=== PATIENT | female | born 1935 | race Caucasian/White ===

== ENCOUNTER 2017-04-29 15:24 | Inpatient (IN) | payer MEDICARE ==
[2017-04-29] MEDS ORDERED: Labetalol HCl 100 MG/20 ML VIAL ONE (16:07)
[2017-04-29 16:28] LABS: #Basophils 0.1 thou/uL (0.0-0.2); #Lymphocytes 3.6 thou/uL (1.20-3.40); #Neutrophils 10.6 thou/uL (1.40-6.50); %Basophils 0.8 % (0.0-1.0); %Eosinophils 0.2 % (0.0-10.0); %Lymphocytes 23.4 % (21.0-51.0); %Monocytes 6.7 % (0.0-10.0); Hematocrit 35.2 % (36.0-47.0); Mean Platelet Volume 7.2 fL (7.4-10.4); Red Blood Cell (RBC) Count 3.78 mill/uL (4.20-5.40); White Blood Cell (WBC) Count 15.5 thou/uL (4.8-10.8)
--- NOTE | 2017-04-29 16:28 | RAD ---
PORTABLE CHEST ONE VIEW 04/29/17 at 4:18 p.m. HISTORY: Chest pain. FINDINGS: Comparison made with exam of 07/06/13. The heart size is enlarged. The lungs are expanded without focal areas of consolidation, pneumothora x, or pleural effusions. There is no evidence of nikko pulmonary edema. 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 There are degenerative changes in the spine and left shoulder joint. IMPRESSION: No radiographic evidence of acute cardiopulmonary process. POS: [facility]
[2017-04-29 16:41] LABS: Lactic Acid - Sepsis 1.2 mmol/L (0.5-2.2)
[2017-04-29 16:47] LABS: ALT (SGPT) 8 U/L (8-55); AST (SGOT) 16 U/L (5-34); Alkaline Phosphatase 95 U/L (40-150); Anion Gap 17 mmol/L (10-20); BUN (Urea Nitrogen) 52 mg/dL (9.8-20.1); Bilirubin, Total 0.3 mg/dL (0.2-1.2); CK (CPK) 108 U/L (29-168); Calc. Creatinine Clearance 0 mL/min (70-130); Calcium 9.7 mg/dL (7.8-10.44); Carbon Dioxide 26 mmol/L (23-31); Chloride 98 mmol/L (98-107); Estimated GFR-MDRD 8; Protein, Total 6.8 g/dL (6.0-8.3)
[2017-04-29 16:51] LABS: Troponin I 0.121 ng/mL (< 0.028)
[2017-04-29] MEDS ORDERED: niCARdipine 20MG In NaCl 20 MG/200 ML BAG ONE (18:30)
[2017-04-29 18:38] LABS: Bilirubin Negative (Negative); Blood, Urine Small (Negative); Glucose, Urine (Dipstick) 250 mg/dL (Negative); Ketone, Urine Negative (Negative); Nitrite Negative (Negative); Protein, Urine (Dipstick) > or equal to 300 mg/dL (Neg-Trace); Urobilinogen 0.2 mg/dL (0.2-1.0)
[2017-04-29 18:41] LABS: Bacteria/HPF 1+ HPF (None Seen); Hyaline Casts/LPF 0-3 HYALINE CAST LPF (0-3 Hyaline)
[2017-04-29] MEDS ORDERED: cefTRIAXone\\ROCEPHIN 2 GM VIAL ONE (19:00)
[2017-04-29] MEDS ORDERED: Acetaminophen 650 MG Suppository PR PRN (20:04)
[2017-04-29] MEDS ORDERED: Labetalol HCl 100 MG/20 ML VIAL SLOW IVP PRN (20:04)
[2017-04-29] MEDS ORDERED: Dextrose 5% in Water 1,000 ML IV PRN (20:08)
[2017-04-29] MEDS ORDERED: Dextrose 50% Abboject 50 ML SYRINGE SLOW IVP PRN (20:08)
--- NOTE | 2017-04-29 21:29 | HP ---
PRIMARY CARE PHYSICIAN: CY LEE M.D. CHIEF COMPLAINT: Weakness. HISTORY OF PRESENT ILLNESS: Ms. Bonilla is a pleasant 82-year-old lady, who was seen at [facility] on 04/29/2017. She has a history of end-stage renal disease. She has refused dialysis in the past. [facility] She reports feeling generalized weakness over the last few days. She also reports feeling nauseous. She also reports chest discomfort, but is unable to clarify further. Bianka cooper also reports fevers. Her son saw her today and he had her discharge from hospice and brought to [facility] emergency room. She was also reportedly hypertensive. She denies any cough or fever. She denies any dysuria or increased frequency of urination. REVIEW OF SYSTEMS: The following complete review of systems was negative, unless otherwise mentione d in the HPI or below: Constitutional: Weight loss or gain, sense of well-being, ability to conduc t usual activities, exercise tolerance. Skin/Breast: Rash, itching, changes in hair growth or loss , nail changes, breast lumps, tenderness, swelling, nipple discharge. Eyes: Vision, double vision, tearing, blind spots, pain. ENT/Mouth: Headaches (location, time of onset, duration, precipitatin g factors), vertigo, lightheadedness, injury. Vision, double vision, tearing, blind spots, pain, nos e bleeding, colds, obstruction, discharge, dental difficulties, gingival bleeding, dentures, neck st iffness, pain, tenderness, masses in thyroid or other areas. Cardiovascular: Precordial pain, subs ternal distress, palpitations, syncope, dyspnea on exertion, orthopnea, nocturnal paroxysmal dyspnea , edema, cyanosis, hypertension, heart murmurs, varicosities, phlebitis, claudication. Respiratory: Pain, shortness of breath, wheezing, stridor, cough, hemoptysis, fever or night sweats. Gastroint estinal: Poor appetite, dysphagia, indigestion, abdominal pain, heartburn, eructation, nausea, vomi ting, hematemesis, jaundice, constipation, or diarrhea, abnormal stools (justyna-colored, tarry, bloody , greasy, foul smelling), flatulence, hemorrhoids, recent changes in bowel habits. Genitourinary: Urgency, frequency, dysuria, nocturia, hematuria, polyuria, oliguria, unusual (or change in) color o f urine, stones, hesitancy, change in size of stream, dribbling, acute retention or incontinence, li [place], potency. Musculoskeletal: Pain, swelling, redness or heat of muscles or joints, limitation, of motion, muscular weakness, atrophy, cramps. Neurologic/Psychiatric: Convulsions, paralyses, tanisha mor, incoordination, parasthesias, difficulties with memory of speech, sensory or motor disturbances , or muscular coordination (ataxia, tremor), emotional problems, anxiety, depression, previous psych iatric care, unusual perceptions, hallucinations. Allergy/Immunologic: Skin rash, anemia, bleeding tendency, polydipsia, polyuria, intolerance to heat or cold. PAST MEDICAL HISTORY: Significant for myocardial infarction, End-stage renal disease, diabetes otoniel itus type 2, gastroesophageal reflux disease, dyslipidemia, and hypertension. PAST SURGICAL HISTORY: Significant for bilateral carpal tunnel surgery, appendectomy, hysterectomy, and tonsillectomy. PSYCHIATRIC HISTORY: Significant for anxiety. SOCIAL HISTORY: No history of tobacco use, alcohol use, or recreational drug use. CODE STATUS: I discussed her code status. She is DNR. She does not want any heroic measures, incl uding dialysis. FAMILY HISTORY: She was adopted, does not know her family history. ALLERGIES: CODEINE, PENICILLIN, and SULFA. CURRENT MEDICATIONS: Clonidine 0.2 mg daily, atorvastatin 40 mg daily, hydralazine 100 mg 3 times a day, aspirin 81 mg daily, Plavix 75 mg daily, Prilosec 10 mg daily, NovoLog insulin by sliding scal e, furosemide 40 mg 3 times a day, 5 mg daily, prednisone 5 mg daily, isosorbide dinitrate 40 mg 3 t imes a day, and Estroblend once daily. PHYSICAL EXAMINATION: GENERAL: Ms. Bonilla is awake and alert, not in acute distress. VITAL SIGNS: Blood pressure is 160/71, pulse is 87, she is breathing at rate of 16, and saturating 97% on 2 liters of oxygen. Her temperature is 99.2 degrees Fahrenheit. T-max in the emergency room was 99.5 degrees Fahrenheit. When she presented to the emergency room, she was also tachycardic wi th a heart rate of 120. She appears frail. EYES: No scleral icterus. No conjunctival pallor. ENT: Slightly dry mucosal membranes, no oropharyngeal erythema or exudates. NECK: Supple, nontender, normal range of movement. Trachea is midline. RESPIRATORY: Accessory muscles of breathing are not active. Chest wall movements are symmetrical b ilaterally. LUNGS: Clear to auscultation without wheeze, rhonchi, or crepitations. CARDIOVASCULAR: S1 and S2 are heard, regular. Peripheral pulses palpable. No carotid bruit, no pe ricardial rub. ABDOMEN: Soft, nontender, bowel sounds heard, no hepatomegaly, no splenomegaly. NEUROLOGIC: Cranial nerves II through XII are intact. Deep tendon reflexes are 2+. MUSCULOSKELETAL: Power is 5/5 in all 4 extremities. Normal range of movement at all major extremit y joints. LYMPHATIC: No cervical lymphadenopathy. SKIN: No rashes or subcutaneous nodules. PSYCHIATRIC: Normal mood, normal affect, patient is oriented to person and place, not to time. LABORATORY DATA: Ms. Bonilla's labs and investigations were reviewed. I reviewed her electrocardiog dagoberto, which shows sinus tachycardia, no ST changes to suggest an acute coronary syndrome. I also rev iewed her chest x-ray, which does not show any pulmonary infiltrates. Laboratory investigation show leukocytosis with 15,500 white cells, normocytic anemia with hemoglobin of 11.6, normal platelet co unt. Sodium 138, potassium decreased at 3.2, creatinine elevated at 4.94, blood urea nitrogen is el evated at 52, indeterminate troponin I of 0.121, and an unremarkable liver profile. Urinalysis is p ositive for protein, glucose, and leukocyte esterase. ASSESSMENT AND PLAN: Ms. Bonilla is a pleasant 82-year-old lady, who was seen at [facility]. Her problem list includes: 1. Sepsis: Ms. Bonilla's presentation meets the criteria for sepsis: The likely source of infectio n in the urine. She has received a dose of ceftriaxone, which I will continue. She does not recall the exact nature of her allergy to penicillin. 2. Urinary tract infection. We will continue ceftriaxone. 3. Hypertensive urgency: Her blood pressure has improved. We will resume her home medications and continue her on p.r.n. IV labetalol and p.r.n. IV hydralazine. 4. Hypokalemia: Replaced. 5. End-stage renal disease. I had a lengthy discussion with Ms. Bonilla. 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 Nephrology Cristal cooper is being consulted. 6. Indeterminate troponin I: Likely secondary to renal failure, rechecked. 7. We will consult palliative care for goals of care discussion. 8. Deep vein thrombosis prophylaxis with sequential compression devices and heparin. 9. Diabetes mellitus: Continue home medications, start insulin sliding scale and Accu-Cheks. 10. History of coronary artery disease. Continue aspirin and Plavix. LEVEL OF RISK: High. LEVEL OF COMPLEXITY: High. The patient is being admitted to the IM for close monitoring overnight. If she continues to impro ve, she will likely be transferred out of [facility] tomorrow. Many thanks for allowing me to participate in your patient's care. Please feel free to contact me w ith any questions or concerns.
[2017-04-29 21:38] VITALS: BMI 27.3
[2017-04-29] MEDS: Isosorbide Dinitrate 20 MG TAB PO SCH (21:58)
[2017-04-29] MEDS: Atorvastatin Calcium 40 MG TAB PO SCH (21:58)
[2017-04-29] MEDS: Heparin 5,000 UNITS/ML VIAL SC SCH (21:58)
[2017-04-29] MEDS: Furosemide 40 MG TAB PO SCH (21:58)
[2017-04-30 05:05] LABS: #Basophils 0.1 thou/uL (0.0-0.2); #Lymphocytes 3.7 thou/uL (1.20-3.40); #Monocytes 0.9 thou/uL (0.11-0.59); #Neutrophils 8.8 thou/uL (1.40-6.50); %Basophils 0.6 % (0.0-1.0); %Eosinophils 0.3 % (0.0-10.0); %Lymphocytes 27.3 % (21.0-51.0); %Monocytes 6.5 % (0.0-10.0); Hematocrit 33.7 % (36.0-47.0); Mean Platelet Volume 7.3 fL (7.4-10.4); Red Blood Cell (RBC) Count 3.58 mill/uL (4.20-5.40); White Blood Cell (WBC) Count 13.5 thou/uL (4.8-10.8)
[2017-04-30 05:27] LABS: Anion Gap 17 mmol/L (10-20); BUN (Urea Nitrogen) 53 mg/dL (9.8-20.1); Calc. Creatinine Clearance 10 mL/min (70-130); Calcium 9.3 mg/dL (7.8-10.44); Carbon Dioxide 25 mmol/L (23-31); Chloride 98 mmol/L (98-107); Estimated GFR-MDRD 8
[2017-04-30] MEDS: HumaLOG 300 UNITS/3 ML VIAL SC PRN (06:41)
--- NOTE | 2017-04-30 07:27 | CON ---
DATE OF CONSULTATION: 04/30/2017 CONSULTING PHYSICIAN: Dr. Wolfe REASON FOR CONSULTATION: Sepsis. HISTORY OF PRESENT ILLNESS: This is an 82-year-old female who came to the hospital last night with generalized malaise for the last 4 days. She had some fever. She was found to have a rather profou nd urinary tract infection. Previous to this admission, she has been on home hospice, which she say s was for chronic kidney disease. She has been steadfast in refusing dialysis in the past. This mo rning she says she still feels poorly. She is complaining of hiccups that have been occurring all n ight long. PAST MEDICAL HISTORY: 1. Myocardial infarction. 2. End-stage renal disease. 3. Diabetes mellitus type 2. 4. Gastroesophageal reflux. 5. Hyperlipidemia. PAST SURGICAL HISTORY: 1. Bilateral carpal tunnel release 2. Appendectomy. 3. Hysterectomy. 4. Tonsillectomy. SOCIAL HISTORY: She is a nonsmoker, does not consume alcohol, does not use any illicit drugs. FAMILY MEDICAL HISTORY: Unknown. ALLERGIES: CODEINE, PENICILLIN, SULFA. MEDICATIONS: Prior to admission, clonidine 0.2 mg daily, atorvastatin 40 mg daily, hydralazine 100 mg 3 times daily. Aspirin 81 mg daily, Plavix 75 mg daily, Prilosec 10 mg daily, prednisone 5 mg da keke, NovoLog insulin sliding scale, furosemide 40 mg 3 times daily, isosorbide dinitrate 40 mg 3 amanda es daily, Estroblend once daily. REVIEW OF SYSTEMS: Denies any nausea, vomiting, hematemesis, no hematochezia, hematuria or dysuria. PHYSICAL EXAMINATION: VITAL SIGNS: Temperature 98.8, pulse 100, blood pressure 173/67, O2 sat 99% on 2 liters. GENERAL: She is awake, alert, has no appearance of distress. HEENT: Pupils are reactive. Sclerae are anicteric. Oropharynx clear. NECK: Without adenopathy or JVD. LUNGS: Clear without wheezing or rhonchi. CARDIAC: S1, S2 regular. There is no audible murmur, rub or gallop. ABDOMEN: Soft, nontender, no hepatosplenomegaly. EXTREMITIES: No clubbing, cyanosis, or edema. X-RAY FINDINGS: Chest x-ray shows no evidence of mass, effusions or infiltrate. LABORATORY DATA: White blood cell count 13.5, hematocrit 33.7, platelet count 361. Sodium 137, pot assium 3.2, chloride 98, CO2 25, BUN 53, creatinine 5.3, glucose 225. ASSESSMENT: 1. Urinary tract infection. 2. High blood pressure with marginal control. PLAN: 1. From my standpoint, she can be transferred to the telemetry floor as she no longer meets criteri a for IMCU. 2. Continue antibiotics. 3. Continue antihypertensive medication and increased dosage as necessary.
--- NOTE | 2017-04-30 10:02 | CON ---
DATE OF CONSULTATION: 04/30/2017 HISTORY OF PRESENT ILLNESS: Ms. Bonilla is an 82-year-old white female who was admitted for sepsis. She is currently a [facility] patient. She has been having profound mental status change. I tri ed to converse with her, but she was essentially almost nonverbal. We are being consulted for her c hronic renal failure/acute kidney injury? REVIEW OF SYSTEMS: No chest pain. Positive for generalized malaise, no nausea, no vomiting,? of fe anant, positive dysuria. No chest pain, no overt shortness of breath. Decreased appetite, decreased energy level, no syncopal episode, no gross hematuria, no dysuria. MEDICATIONS: On 04/30/2017, Tylenol 650 mg q.4 h. p.r.n., Norvasc 5 mg once daily, Ecotrin 81 mg ta b once daily, Lipitor 40 mg at bedtime, ceftriaxone 1 gram IV q.24 h., clonidine 0.2 mg daily, Plavi x 75 mg once a day, furosemide 40 mg t.i.d., hydralazine 20 mg IV q.6 h. p.r.n., hydralazine 100 mg p.o. t.i.d., Humalog sliding scale, Isordil 40 mg t.i.d., prednisone 5 mg q.a.m. PAST MEDICAL HISTORY: 1. Coronary artery disease. 2. 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 3. History of a renal artery stenosis. 4. Coronary artery disease, status post NH. 5. Type 2 diabetes mellitus. 6. Hyperlipidemia. 7. Status post atrial flutter. PAST SURGICAL HISTORY: Includes the following, 1. Status post bilateral carpal tunnel release. 2. Status post renal arteriogram. 3. Status post cardiac cath with stent placement. 4. Status post appendectomy. 5. Status post hysterectomy. 6. Status post tonsillectomy. SOCIAL HISTORY: Currently, a [facility] patient. One child. Currently, no smoking, no alcohol i ntake, no IV drug abuse. Please note this patient was previously on hospice? Currently, she is a DNR. ALLERGIES: CODEINE, PENICILLIN, SULFA. TRAUMA: None. IMMUNIZATIONS: Unknown. HOSPITALIZATIONS: Please see past medical history. FAMILY HISTORY: Noncontributory - patient was adopted. PHYSICAL EXAMINATION: VITAL SIGNS: Blood pressure is 171/70, heart rate 92, respiratory rate 18, pulse ox 100%, temperatu re 98.9. GENERAL: Noted to be awake and nonverbal. Sedentary, lethargic. SKIN: Decreased turgor. HEENT: Pinkish conjunctivae, anicteric sclerae. NECK: No neck mass, no carotid bruits, no JVD. CHEST: No deformities. LUNGS: Decreased breath sounds. HEART: Normal sinus rhythm. No murmur, no gallops, no rubs. ABDOMEN: Globular, soft, nontender, no masses. EXTREMITIES: No edema, no deformities. LABORATORY DATA: On 04/30/2017, sodium 127, potassium 3.2, chloride 98, carbon dioxide 25, BUN 53, creatinine 5.23, GFR 18 mL per minute, glucose 225, calcium 9.3. White count 13.5, hemoglobin 10.9. Chest x-ray shows no acute cardiopulmonary process. ASSESSMENT AND PLAN: Acute kidney injury on top of her chronic renal failure - I feel that the Lasi x may be contributing with this. Chest x-ray did not show any overt congestive heart failure with t his patient. My bias is to hold off the diuretics temporarily if she is on any diuretics. I feel t hat this patient is a poor dialysis candidate. I will be discussing the issue with the patient's so n. I did speak with the nurse to have the son call me. For the moment, continue supportive care. Based on her history of renal artery stenosis, the underlying renal dysfunction may be secondary to hypertensive nephropathy and/or renovascular disease. Continue supportive care.
--- NOTE | 2017-04-30 10:07 | PDOC.PN ---
- Subjective Encounter Start Date: 04/30/17 Encounter Start Time: 07:20 Pt seen for followup re: UTI. Sleepy, not answering questions. Unable to complete ROS. - Objective Vital Signs & Weight: Vital Signs (12 hours) Temp Pulse Resp BP BP Pulse Ox 04/30/17 07:59 98.9 F 92 18 171/70 H 100 04/30/17 06:07 100 173/67 H 04/30/17 04:15 100 187/64 H 04/30/17 04:00 98.8 F 97 20 173/75 H 99 04/30/17 00:00 98.8 F 97 20 152/51 H 99 04/29/17 22:30 98.8 F 95 20 99 Weight Weight 159 lb I&O: 04/29/17 04/30/17 05/01/17 06:59 06:59 06:59 Intake Total 250 Balance 250 Result Diagrams: 04/30/17 04:23 04/30/17 04:23 Additional Labs: Accuchecks 04/30/17 04/30/17 04/29/17 09:21 05:58 21:42 POC Glucose 292 H 243 H 253 H Phys Exam - Physical Examination Constitutional: NAD HEENT: moist MMs, oral pharynx no lesions Neck: supple, full ROM Respiratory: no wheezing, no rales, no rhonchi, clear to auscultation bilateral Cardiovascular: RRR, no rub Gastrointestinal: soft, non-tender, no distention, positive bowel sounds Musculoskeletal: pulses present Neurological: moves all 4 limbs Lymphatic: no nodes Psychiatric: normal affect Deviation from normal: Unable to assess orientation to person, place or time Skin: no rash, normal turgor, cap refill <2 seconds Dx/Plan (1) UTI (urinary tract infection) Status: Acute (2) Altered mental status Code(s): R41.82 - ALTERED MENTAL STATUS, UNSPECIFIED Status: Acute (3) CKD (chronic kidney disease) Code(s): N18.9 - CHRONIC KIDNEY DISEASE, UNSPECIFIED Status: Chronic (4) Hypokalemia Code(s): E87.6 - HYPOKALEMIA Status: Acute (5) Hypertensive urgency Code(s): I16.0 - HYPERTENSIVE URGENCY Status: Resolved - Plan continue antibiotics, out of bed/ambulate * . Pt is keeping eyes tightly shut, nodding or shaking head appropriately in response to questions. Continue to monitor. Change antibiotic to IV meropenem to cover ESBL+ organisms, await cultures. Await palliative care/nephrology consults. Repeat troponin. Replace potassium. Review of Systems - Medications/Allergies Allergies/Adverse Reactions: Allergies Allergy/AdvReac Type Severity Reaction Status Date / Time codeine Allergy Verified 04/29/17 20:03 Penicillins Allergy Verified 04/29/17 20:03 Sulfa (Sulfonamide Allergy Verified 04/29/17 20:03 Antibiotics) Medications: Current Medications Acetaminophen (Tylenol) 650 mg PO Q4H PRN PRN Reason: Headache/Fever or Pain Acetaminophen (Tylenol) 650 mg HI Q4H PRN PRN Reason: Headache/Fever or Pain Amlodipine Besylate (Norvasc) 5 mg PO DAILY [facility] Last Admin: 04/30/17 06:07 Dose: 5 mg Aspirin (Ecotrin) 81 mg PO DAILY [facility] Atorvastatin Calcium (Lipitor) 40 mg PO HS [facility] Last Admin: 04/29/17 21:58 Dose: 40 mg Clonidine HCl (Catapres) 0.2 mg PO DAILY [facility] Last Admin: 04/30/17 06:07 Dose: 0.2 mg Clopidogrel Bisulfate (Plavix) 75 mg PO DAILY [facility] Dextrose/Water (Dextrose 50%) 25 gm SLOW IVP PRN PRN PRN Reason: Hypoglycemia Glucagon (Glucagon) 1 mg IM PRN PRN PRN Reason: Hypoglycemia Heparin Sodium (Porcine) (Heparin) 5,000 units SC TID [facility] Last Admin: 04/29/17 21:58 Dose: 5,000 units Hydralazine HCl (Apresoline) 20 mg SLOW IVP Q6H PRN PRN Reason: SBP Greater Than 180 Hydralazine HCl (Apresoline) 100 mg PO TID [facility] Last Admin: 04/29/17 21:57 Dose: 100 mg Dextrose/Water (D5w) 1,000 mls @ 0 mls/hr IV .Q0M PRN; As Directed PRN Reason: Hypoglycemia Ceftriaxone Sodium 1 gm/ (Sodium Chloride) 100 mls @ 200 mls/hr IVPB Q24HR [facility] Insulin Human Lispro (Humalog) 0 units SC .MILD SLIDING SCALE PRN PRN Reason: Mild Correctional Scale Last Admin: 04/30/17 06:41 Dose: 4 unit Isosorbide Dinitrate (Isordil) 40 mg PO TID [facility] Last Admin: 04/29/17 21:58 Dose: 40 mg Labetalol HCl (Normodyne) 10 mg SLOW IVP Q4H PRN PRN Reason: SBP Greater Than 180 Last Admin: 04/30/17 04:15 Dose: 10 mg Pantoprazole Sodium (Protonix) 40 mg PO DAILY [facility] Prednisone (Prednisone) 5 mg PO QA- SNOW
[2017-04-30] MEDS ORDERED: Potassium Chloride 40 MEQ in Premix Bag 1 BAG IVPB SCH (10:15)
[2017-04-30] MEDS: Meropenem 1 GM in Sodium Chloride 0.9% 100 ML IVPB SCH ×2 (12:26→20:16)
[2017-04-30 13:02] LABS: Troponin I 0.107 ng/mL (< 0.028)
[2017-04-30] MEDS: predniSONE 5 MG TAB PO SCH (13:36)
[2017-04-30] MEDS: Aspirin 81 mg Enteric Coated Tablet PO SCH (13:38)
[2017-04-30] MEDS: Isosorbide Dinitrate 20 MG TAB PO SCH ×3 (13:38→20:18)
[2017-04-30] MEDS: Heparin 5,000 UNITS/ML VIAL SC SCH ×3 (13:38→20:44)
[2017-04-30] MEDS: Clopidogrel Bisulfate 75 MG TAB PO SCH (13:38)
[2017-04-30] MEDS: Furosemide 40 MG TAB PO SCH (13:39)
[2017-04-30] MEDS ORDERED: cefTRIAXone\\ROCEPHIN 1 GM in Sodium Chloride 0.9% 100 ML IVPB SCH (18:00)
[2017-04-30] MEDS: Atorvastatin Calcium 40 MG TAB PO SCH (20:40)
[2017-05-01] MEDS: Meropenem 1 GM in Sodium Chloride 0.9% 100 ML IVPB SCH (04:13)
[2017-05-01] MEDS: Acetaminophen 325 MG TAB PO PRN ×5 (04:45→22:08)
[2017-05-01 05:14] LABS: #Basophils 0.1 thou/uL (0.0-0.2); #Eosinphils 0.1 thou/uL (0.0-0.7); #Lymphocytes 3.3 thou/uL (1.20-3.40); #Monocytes 0.9 thou/uL (0.11-0.59); #Neutrophils 8.3 thou/uL (1.40-6.50); %Basophils 0.7 % (0.0-1.0); %Lymphocytes 25.9 % (21.0-51.0); Hematocrit 30.2 % (36.0-47.0); Mean Platelet Volume 7.8 fL (7.4-10.4); Red Blood Cell (RBC) Count 3.22 mill/uL (4.20-5.40); White Blood Cell (WBC) Count 12.7 thou/uL (4.8-10.8)
[2017-05-01 05:31] LABS: Anion Gap 15 mmol/L (10-20); BUN (Urea Nitrogen) 61 mg/dL (9.8-20.1); Calc. Creatinine Clearance 9 mL/min (70-130); Calcium 8.8 mg/dL (7.8-10.44); Carbon Dioxide 25 mmol/L (23-31); Chloride 101 mmol/L (98-107); Estimated GFR-MDRD 7
[2017-05-01] MEDS: HumaLOG 300 UNITS/3 ML VIAL SC PRN ×4 (07:37→20:42)
[2017-05-01] MEDS: Aspirin 81 mg Enteric Coated Tablet PO SCH (08:05)
[2017-05-01] MEDS: Isosorbide Dinitrate 20 MG TAB PO SCH ×3 (08:05→20:41)
[2017-05-01] MEDS: predniSONE 5 MG TAB PO SCH (08:05)
[2017-05-01] MEDS: Clopidogrel Bisulfate 75 MG TAB PO SCH (08:06)
[2017-05-01] MEDS: Heparin 5,000 UNITS/ML VIAL SC SCH ×3 (08:06→20:41)
--- NOTE | 2017-05-01 08:16 | PRG ---
DATE OF SERVICE: 05/01/2017 The patient seems to be doing better today. PHYSICAL EXAMINATION: VITAL SIGNS: Temperature is 98.7, pulse 100, blood pressure 179/55, O2 sat 100% on 2 liters. HEENT: Unremarkable. NECK: No JVD. LUNGS: Fairly clear. CARDIOVASCULAR: S1, S2 regular. ABDOMEN: Soft. EXTREMITIES: No edema. Her urine culture is growing Enterococcus, which is sensitive to all of the antibiotics. LABORATORY DATA: White blood cell count 12, hematocrit 30, platelet count 322. Sodium 138, potassi um 3.4, chloride 101, CO2 25, BUN 61, creatinine 5.7, glucose 174. ASSESSMENT: 1. Urosepsis. 2. High blood pressure with poor control. 3. Chronic renal failure. PLAN: 1. Consolidate antibiotics. 2. From my standpoint, she can transfer to a medical floor.
[2017-05-01] MEDS ORDERED: Cipro 250 MG TAB PO SCH (12:30)
[2017-05-01] MEDS ORDERED: Potassium Chloride 20 MEQ TAB PO SCH (13:00)
[2017-05-01] MEDS: Cipro 250 MG TAB PO SCH (13:18)
--- NOTE | 2017-05-01 14:41 | PDOC.PN ---
- Subjective Encounter Start Date: 05/01/17 Encounter Start Time: 09:20 Pt seen for followup re: UTI. More alert today, answering questions. Denies chest pain or shortness of breath, fevers or chills. - Objective MAR Reviewed: Yes Vital Signs & Weight: Vital Signs (12 hours) Temp Pulse Resp BP BP Pulse Ox 05/01/17 11:08 98.7 F 96 18 128/52 L 100 05/01/17 08:06 101 H 163/53 H 05/01/17 08:05 100 05/01/17 08:00 98.5 F 101 H 18 163/53 H 98 05/01/17 07:00 100 20 179/55 H 100 05/01/17 06:19 92 200/67 H 05/01/17 04:18 100 05/01/17 04:00 98.7 F 92 18 177/61 H 100 Weight Weight 161 lb 3.2 oz I&O: 04/30/17 05/01/17 05/02/17 06:59 06:59 06:59 Intake Total 250 680 360 Balance 250 680 360 Result Diagrams: 05/01/17 04:38 05/01/17 04:38 Additional Labs: Accuchecks 05/01/17 05/01/17 04/30/17 10:34 05:54 21:08 POC Glucose 292 H 187 H 226 H 04/30/17 16:37 POC Glucose 245 H EKG Reviewed by me: Yes (Tele: NSR) Phys Exam - Physical Examination Constitutional: NAD HEENT: moist MMs, oral pharynx no lesions Neck: supple Respiratory: clear to auscultation bilateral Cardiovascular: RRR Gastrointestinal: soft Neurological: moves all 4 limbs Psychiatric: normal affect Dx/Plan (1) UTI (urinary tract infection) Status: Acute (2) Hypokalemia Code(s): E87.6 - HYPOKALEMIA Status: Acute (3) CKD (chronic kidney disease) Code(s): N18.9 - CHRONIC KIDNEY DISEASE, UNSPECIFIED Status: Chronic (4) Hypertensive urgency Code(s): I16.0 - HYPERTENSIVE URGENCY Status: Resolved (5) Altered mental status Code(s): R41.82 - ALTERED MENTAL STATUS, UNSPECIFIED Status: Resolved - Plan plan discussed w/ family, continue antibiotics, PT/OT, DVT proph w/heparin * . Enterococcus UTI, change antibiotics to oral ciprofloxacin. Discussed with pt's son Suhas (POA), updated him. PT/OT annelise, in case pt needs SNF prior to discharge home with hospice service. Review of Systems - Review of Systems Constitutional: negative: Fever, Chills, Sweats, Weakness, Malaise Cardiovascular: negative: Chest Pain, Palpitations, Orthopnea, Paroxysmal Noc. Dyspnea, Edema, Light Headedness Gastrointestinal: negative: Nausea, Vomiting, Abdominal Pain, Diarrhea, Constipation, Melena, Hematochezia - Medications/Allergies Allergies/Adverse Reactions: Allergies Allergy/AdvReac Type Severity Reaction Status Date / Time codeine Allergy Verified 04/29/17 20:03 Penicillins Allergy Verified 04/29/17 20:03 Sulfa (Sulfonamide Allergy Verified 04/29/17 20:03 Antibiotics) Medications: Current Medications Acetaminophen (Tylenol) 650 mg PO Q4H PRN PRN Reason: Headache/Fever or Pain Last Admin: 05/01/17 13:18 Dose: 650 mg Acetaminophen (Tylenol) 650 mg HI Q4H PRN PRN Reason: Headache/Fever or Pain Amlodipine Besylate (Norvasc) 5 mg PO DAILY [facility] Last Admin: 05/01/17 08:06 Dose: 5 mg Aspirin (Ecotrin) 81 mg PO DAILY [facility] Last Admin: 05/01/17 08:05 Dose: 81 mg Atorvastatin Calcium (Lipitor) 40 mg PO HS [facility] Last Admin: 04/30/17 20:40 Dose: 40 mg Ciprofloxacin (Cipro) 250 mg PO Q18H [facility] Last Admin: 05/01/17 13:18 Dose: 250 mg Clonidine HCl (Catapres) 0.2 mg PO DAILY [facility] Last Admin: 05/01/17 08:06 Dose: 0.2 mg Clopidogrel Bisulfate (Plavix) 75 mg PO DAILY [facility] Last Admin: 05/01/17 08:06 Dose: 75 mg Dextrose/Water (Dextrose 50%) 25 gm SLOW IVP PRN PRN PRN Reason: Hypoglycemia Glucagon (Glucagon) 1 mg IM PRN PRN PRN Reason: Hypoglycemia Heparin Sodium (Porcine) (Heparin) 5,000 units SC TID [facility] Last Admin: 05/01/17 08:06 Dose: 5,000 units Hydralazine HCl (Apresoline) 20 mg SLOW IVP Q6H PRN PRN Reason: SBP Greater Than 180 Last Admin: 05/01/17 06:19 Dose: 20 mg Hydralazine HCl (Apresoline) 100 mg PO TID [facility] Last Admin: 05/01/17 08:05 Dose: 100 mg Dextrose/Water (D5w) 1,000 mls @ 0 mls/hr IV .Q0M PRN; As Directed PRN Reason: Hypoglycemia Insulin Human Lispro (Humalog) 0 units SC .MILD SLIDING SCALE PRN PRN Reason: Mild Correctional Scale Last Admin: 05/01/17 11:33 Dose: 6 unit Isosorbide Dinitrate (Isordil) 40 mg PO TID [facility] Last Admin: 05/01/17 08:05 Dose: 40 mg Labetalol HCl (Normodyne) 10 mg SLOW IVP Q4H PRN PRN Reason: SBP Greater Than 180 Last Admin: 04/30/17 04:15 Dose: 10 mg Pantoprazole Sodium (Protonix) 40 mg PO DAILY [facility] Last Admin: 05/01/17 08:05 Dose: 40 mg Potassium Chloride (K-Dur) 20 meq PO 1300 [facility] Stop: 05/01/17 15:00 Last Admin: 05/01/17 13:18 Dose: 20 meq Prednisone (Prednisone) 5 mg PO [facility] Last Admin: 05/01/17 08:05 Dose: 5 mg
[2017-05-01] MEDS ORDERED: Ciprofloxacin 500 MG TAB PO SCH (20:00)
[2017-05-01] MEDS: Atorvastatin Calcium 40 MG TAB PO SCH (20:41)
--- NOTE | 2017-05-02 02:24 | PDOC.EVN ---
Event Note - Event Note Event Note: RN called - Pt c/o CP. Will get EKG, CE and add NTG patch x 1. Add Echo for AM Update - Troponins elevated - Will start Heparin drip, Consult Cardio, DC SQ Heparin
[2017-05-02] MEDS ORDERED: Nitroglycerin 2% Ointment 1 INCH/1 GM Packet ONE (02:25)
[2017-05-02] MEDS ORDERED: Nitroglycerin 0.4 MG TAB (25 Tab Bottle) ONE (02:25)
[2017-05-02] MEDS: Nitroglycerin 0.4 MG TAB (25 Tab Bottle) PO PRN ×3 (02:29→03:02)
[2017-05-02] MEDS ORDERED: Nitroglycerin 2% Ointment 1 INCH/1 GM Packet TOP SCH (02:30)
[2017-05-02 02:46] LABS: #Basophils 0.1 thou/uL (0.0-0.2); #Eosinphils 0.2 thou/uL (0.0-0.7); #Lymphocytes 3.2 thou/uL (1.20-3.40); #Neutrophils 8.5 thou/uL (1.40-6.50); %Basophils 0.7 % (0.0-1.0); %Eosinophils 1.4 % (0.0-10.0); %Lymphocytes 24.7 % (21.0-51.0); %Monocytes 7.9 % (0.0-10.0); Mean Platelet Volume 7.1 fL (7.4-10.4); Red Blood Cell (RBC) Count 3.19 mill/uL (4.20-5.40)
[2017-05-02] MEDS ORDERED: cloNIDine HCl 0.1 MG TAB PO PRN (03:11)
[2017-05-02 03:22] LABS: Troponin I 0.741 ng/mL (< 0.028)
[2017-05-02] MEDS ORDERED: Heparin 10,000 UNITS/ 10 ML VIAL SLOW IVP SCH (03:30)
[2017-05-02] MEDS ORDERED: Heparin 25,000 units/D5W 500 ML IVPB SCH (03:30)
[2017-05-02 03:36] LABS: Anion Gap 18 mmol/L (10-20); BUN (Urea Nitrogen) 70 mg/dL (9.8-20.1); Calc. Creatinine Clearance 8 mL/min (70-130); Carbon Dioxide 24 mmol/L (23-31); Chloride 99 mmol/L (98-107); Estimated GFR-MDRD 6
[2017-05-02] MEDS: Acetaminophen 325 MG TAB PO PRN ×3 (04:33→14:36)
[2017-05-02 07:24] LABS: Troponin I 0.592 ng/mL (< 0.028)
--- NOTE | 2017-05-02 08:14 | RAD ---
SINGLE VIEW OF CHEST: Date: 05/02/17 COMPARISON: 04/29/17. HISTORY: Chest pain. FINDINGS: Single view of the chest shows an enlarged cardiomediastinal silhouette. Increased interstitial lung markings are present. There is no evidence of consolidation, mass, or pleural effusion. IMPRESSION: Cardiomegaly without evidence of acute cardiopulmonary disease. POS: [facility]
[2017-05-02] MEDS: predniSONE 5 MG TAB PO SCH (09:11)
[2017-05-02] MEDS: Cipro 250 MG TAB PO SCH (09:11)
[2017-05-02] MEDS: Aspirin 81 mg Enteric Coated Tablet PO SCH (09:12)
[2017-05-02] MEDS: Clopidogrel Bisulfate 75 MG TAB PO SCH (09:13)
[2017-05-02] MEDS: Isosorbide Dinitrate 20 MG TAB PO SCH ×4 (09:14→21:35)
[2017-05-02] MEDS: HumaLOG 300 UNITS/3 ML VIAL SC PRN ×3 (11:53→21:45)
[2017-05-02] MEDS ORDERED: Morphine Sulfate 2 MG/ML SYRINGE SLOW IVP PRN (12:13)
--- NOTE | 2017-05-02 12:17 | PDOC.PN ---
- Subjective Encounter Start Date: 05/02/17 Encounter Start Time: 12:14 Ms. Bonilla is complaining of some chest discomfort still. she rates it at about a 5/10. She denies having any nausea. - Objective MAR Reviewed: Yes Vital Signs & Weight: Vital Signs (12 hours) Temp Pulse Resp BP BP Pulse Ox 05/02/17 11:57 98.9 F 95 16 138/56 L 98 05/02/17 09:13 105 H 198/75 H 05/02/17 09:12 198/75 H 05/02/17 09:11 105 H 198/75 H 05/02/17 08:00 98.9 F 105 H 18 198/75 H 98 05/02/17 03:10 98.9 F 105 H 20 178/64 H 98 05/02/17 00:29 98 Weight Weight 162 lb I&O: 05/01/17 05/02/17 05/03/17 06:59 06:59 06:59 Intake Total 680 1160 Balance 680 1160 Result Diagrams: 05/02/17 04:15 05/02/17 02:38 Additional Labs: Accuchecks 05/02/17 05/02/17 05/01/17 11:43 05:46 20:39 POC Glucose 309 H 170 H 262 H 05/01/17 17:35 POC Glucose 325 H Phys Exam - Physical Examination HEENT: PERRLA Respiratory: no wheezing, no rales, no rhonchi, clear to auscultation bilateral Cardiovascular: RRR, no significant murmur Gastrointestinal: soft, non-tender, positive bowel sounds Musculoskeletal: no edema Dx/Plan (1) NSTEMI (non-ST elevated myocardial infarction) Code(s): I21.4 - NON-ST ELEVATION (NSTEMI) MYOCARDIAL INFARCTION Status: Acute (2) End stage renal disease Code(s): N18.6 - END STAGE RENAL DISEASE Status: Acute (3) Diabetes mellitus type 2 in nonobese Code(s): E11.9 - TYPE 2 DIABETES MELLITUS WITHOUT COMPLICATIONS Status: Acute (4) Generalized weakness Code(s): R53.1 - WEAKNESS Status: Acute (5) UTI (urinary tract infection) Status: Acute - Plan * NSTEMI- continue nitrates, aspirin and plavix- will add Metoprolol * Echo results are pending * Await Cardiology evaluation. Patient normally sees Dr. Wyatt * UTI- culture is positive for enterococcus- sensitive to Quinolones- she has been changed to Cipro, renal dosed * DM- blood glucose is labile- will monitor trend, adjust medications as needed * Continue PT/OT.
[2017-05-02 12:54] LABS: Troponin I 0.622 ng/mL (< 0.028)
[2017-05-02] MEDS ORDERED: Metoprolol Tartrate 25 MG TAB PO SCH ×2 (13:00→21:00)
[2017-05-02] MEDS: Metoprolol Tartrate 25 MG TAB PO SCH ×3 (14:35→21:36)
--- NOTE | 2017-05-02 15:23 | PRG ---
DATE OF SERVICE: 05/02/2017 SERVICE: Pulmonary Medicine. INTERVAL HISTORY: The patient is doing great from a cardiovascular and respiratory standpoint. She denies any current fevers, chills, nausea, vomiting, or chest discomfort. She is extraordinarily s leepy today. Her family is suggesting that she is having episodes of sleepiness followed by periods in which she is a little bit more lucid. Yesterday, she is little bit confused about where she was and what the situation is. She has never had a history of delirium before, but that appears to be dealing with at this time. There were no overnight events. PHYSICAL EXAMINATION: VITAL SIGNS: Afebrile, pulse 95, blood pressure 138/56, respirations 16, saturation 98% on 2 liters nasal cannula. GENERAL: Patient is awake, alert, no apparent distress. LUNGS: Decreased air entry. There is crackles in the dependent regions. HEART: Normal rate, regular. ABDOMEN: Soft, nontender, nondistended. Bowel sounds positive. MUSCULOSKELETAL: No cyanosis or clubbing. There is 1+ pitting in the bilateral lower extremities. GENITOURINARY: No Thomas. NEUROLOGIC: Grossly nonfocal. LABORATORY DATA: Hemoglobin 9.8 otherwise. Troponin is currently trending to 0.622. Basic metabol ic profile is unremarkable except for creatinine of 6.4. ASSESSMENT: 1. Severe sepsis. 2. Acute hypoxic respiratory failure. 3. Urinary tract infection. 4. Non-ST elevation myocardial infarction. 5. End-stage renal disease. 6. Delirium. PLAN: We will continue to pull fluid off the patient with dialysis. We will try to minimize distra ctions in the evening and increase the light activity during the daytime. The patient's family appr eciates that the delirium is unlikely to clear inside of the hospital. Pulmonary will continue to f sugar, intermittently during this hospital stay. Please call if there are any questions or concerns .
--- NOTE | 2017-05-02 15:31 | CON ---
DATE OF CONSULTATION: 05/02/2017 REASON FOR CONSULTATION: Elevated troponin and chest pain. REFERRING PROVIDER: Dr. Kwasi Todd. HISTORY OF PRESENT ILLNESS: Ms. Bonilla is an unfortunate 82-year-old woman with a history of stage 5 renal failure and other comorbidities who recently was on hospice. Her family took her off hospic e due to increased weakness and recent sepsis. She developed chest pain last evening that she state d it lasted for 12 hours. No ameliorating, exacerbating or precipitating factors present. EKG was performed and showed nonspecific ST-T wave changes. Her peak troponin was estimated at 0.66. She i s currently pain free. PAST MEDICAL AND SURGICAL HISTORY: Stage 5 renal failure and she has refused dialysis, previous MS, diabetes mellitus, acid reflux, hyperlipidemia, hypertension, carpal tunnel release, appendectomy, hysterectomy and tonsillectomy. SOCIAL HISTORY: No current tobacco or alcohol use. She is currently DNR. ALLERGIES: CODEINE, PENICILLIN and SULFA. MEDICATIONS: Include clonidine, Plavix, hydralazine, Prilosec, prednisone, Lasix, Estroblend, isoso rbide and NovoLog. REVIEW OF SYSTEMS: Ten-point review of systems is reviewed and as above, otherwise negative. PHYSICAL EXAMINATION: GENERAL: Patient is a pleasant female who is in no acute distress. The patient appears her stated age. VITAL SIGNS: Blood pressure 130/56, pulse 95 and temperature 98.9. NEUROLOGIC: The patient is alert and oriented times 3 with no focal neurologic deficits. HEENT: Sclerae without icterus. Mouth has moist mucous membranes with normal pallor. NECK: No JVD. Carotid upstroke brisk. No bruits bilaterally. LUNGS: Clear to auscultation with unlabored respirations. BACK: No scoliosis or kyphosis. CARDIAC: Regular rate and rhythm with normal S1 and S2. No S3 or S4 noted. No significant rubs, m urmurs, thrills, or gallops noted throughout the precordium. PMI is not displaced. There is no par asternal heave. ABDOMEN: Soft, nontender, nondistended. No peritoneal signs present. No hepatosplenomegaly. No a bnormal striae. EXTREMITIES: 2+ femoral and 2+ dorsalis pedis pulses. No cyanosis, clubbing, or edema. SKIN: No gross abnormalities. LABORATORY DATA: Pertinent labs as above including creatinine of 6.43 with a BUN of 70. Hemoglobin 9.8. IMPRESSION: 1. Elevated troponin. 2. End-stage renal disease. RECOMMENDATIONS: I had a long discussion with the family on how to proceed. Her increased troponin may be due to elevated creatinine, demand ischemia, but unlikely an acute coronary event. Her EKG is within normal limits and she is currently pain free. Heparin was started overnight. Heparin has now been discontinued. At this point, I discussed coronary angiography with the family. That woul d not be my recommendation given that she has refused dialysis and continues to refuse dialysis. Bianka cooper does have significant oliguria and would likely become anuric. Family agrees to not proceed with a more aggressive approach. They like to proceed with medical therapy. At this point, we will add low dose beta-ignacia therapy. Continue aspirin and Plavix in addition to nitrates. They are likel y going to reinstitute hospice.
[2017-05-02] MEDS: Atorvastatin Calcium 40 MG TAB PO SCH (21:36)
[2017-05-03] MEDS: Cipro 250 MG TAB PO SCH ×2 (01:21→18:36)
[2017-05-03] MEDS: predniSONE 5 MG TAB PO SCH (10:28)
[2017-05-03] MEDS: Metoprolol Tartrate 25 MG TAB PO SCH ×2 (10:30→21:12)
[2017-05-03] MEDS: Isosorbide Dinitrate 20 MG TAB PO SCH ×3 (10:32→21:12)
[2017-05-03] MEDS: Clopidogrel Bisulfate 75 MG TAB PO SCH (10:34)
[2017-05-03] MEDS: Aspirin 81 mg Enteric Coated Tablet PO SCH (10:40)
--- NOTE | 2017-05-03 10:49 | PDOC.PN ---
- Subjective Encounter Start Date: 05/03/17 Encounter Start Time: 10:46 Ms. Bonilla does not have any complaints this morning. She denies chest pain or difficulty breathing. - Objective MAR Reviewed: Yes Vital Signs & Weight: Vital Signs (12 hours) Temp Pulse Resp BP BP Pulse Ox 05/03/17 10:34 140/60 05/03/17 10:31 68 140/60 05/03/17 10:30 68 140/60 05/03/17 08:00 98.8 F 68 16 140/60 98 05/03/17 04:13 168/56 H 05/03/17 03:44 98.6 F 88 16 185/71 H 99 05/03/17 00:22 96 05/02/17 23:23 98.9 F 82 18 141/59 H 96 Weight Weight 168 lb 14.4 oz I&O: 05/02/17 05/03/17 05/04/17 06:59 06:59 06:59 Intake Total 1160 460 240 Balance 1160 460 240 Result Diagrams: 05/02/17 04:15 05/02/17 02:38 Additional Labs: Accuchecks 05/03/17 05/02/17 05/02/17 05:53 21:34 16:34 POC Glucose 168 H 228 H 251 H 05/02/17 11:43 POC Glucose 309 H Phys Exam - Physical Examination HEENT: PERRLA Respiratory: no wheezing, no rales, no rhonchi, clear to auscultation bilateral Cardiovascular: RRR, no significant murmur Gastrointestinal: soft, non-tender, positive bowel sounds Musculoskeletal: no edema Dx/Plan (1) NSTEMI (non-ST elevated myocardial infarction) Code(s): I21.4 - NON-ST ELEVATION (NSTEMI) MYOCARDIAL INFARCTION Status: Acute (2) End stage renal disease Code(s): N18.6 - END STAGE RENAL DISEASE Status: Acute (3) Diabetes mellitus type 2 in nonobese Code(s): E11.9 - TYPE 2 DIABETES MELLITUS WITHOUT COMPLICATIONS Status: Acute (4) Generalized weakness Code(s): R53.1 - WEAKNESS Status: Acute (5) UTI (urinary tract infection) Status: Acute - Plan * UTI with sepsis- much improved * Continue Cipro for Enterococcus * NSTEMI- Echo results noted, there have not been any significant wall motion abnormalities, continue medical treatment * DM- blood glucose is stable * Metabolic encephalopathy- improving * Will begin discharge planning, group home vs. back home with Hospice.
--- NOTE | 2017-05-03 17:23 | PRG ---
DATE OF SERVICE: 05/03/2017 SERVICE: Pulmonary Medicine. INTERVAL HISTORY: The patient is doing really well from a mentation standpoint. She denies any manolo rtness of breath. She continues to have a little bit of heaviness over her chest. This has not rylee nged significantly since presentation based on what she suggests. She was able to get up to the sanford e of the bed yesterday. Tomorrow, thinking about trying to get her out of bed into a chair. Otherw ise, there has been no interval change to her condition. She is perfectly comfortable. PHYSICAL EXAMINATION: VITAL SIGNS: Afebrile, pulse 81, blood pressure 155/50, respirations 14, saturation 98% on half lit er nasal cannula. HEENT: Normocephalic, atraumatic. Sclerae are white, conjunctivae pink. Oral and nasal mucosa is moist without lesions. LUNGS: Decent air entry with no prolonged expiratory phase, wheezing, rhonchi or crackles. HEART: Normal rate, regular. ABDOMEN: Soft, nontender, nondistended. Bowel sounds positive. MUSCULOSKELETAL: No cyanosis or clubbing. No pitting in the bilateral lower extremities. NEUROLOGIC: Grossly nonfocal. LABORATORY DATA: Lipid profile is unremarkable. Troponin 0.6-2. Glucose is ranging from 168-272. Urine cultures growing Enterococcus. IMAGING: Echocardiogram demonstrates a normal ejection fraction with left ventricular hypertrophy. There is minimal valvular disease. ASSESSMENT: 1. Severe sepsis. 2. Urinary tract infection secondary to Enterococcus. 3. Acute hypoxic respiratory failure, resolved. 4. Non-ST elevation myocardial infarction. 5. End-stage renal disease. 6. Delirium. PLAN: At this point, the patient has no further requirements for Pulmonary or Critical Care opinion . I will sign off. Please call with additional questions or concerns moving forward. If the patie nt continues to abstain from dialysis, transitioning back to comfort care only would be appropriate.
[2017-05-03] MEDS: Acetaminophen 325 MG TAB PO PRN (18:50)
[2017-05-03] MEDS: Atorvastatin Calcium 40 MG TAB PO SCH (21:11)
[2017-05-03] MEDS: HumaLOG 300 UNITS/3 ML VIAL SC PRN (21:12)
[2017-05-04] MEDS: Acetaminophen 325 MG TAB PO PRN ×3 (04:16→22:25)
[2017-05-04] MEDS: HumaLOG 300 UNITS/3 ML VIAL SC PRN ×2 (06:48→17:54)
[2017-05-04 08:31] LABS: Hematocrit 30.2 % (36.0-47.0)
--- NOTE | 2017-05-04 08:53 | PDOC.PN ---
- Subjective Encounter Start Date: 05/04/17 Encounter Start Time: 08:51 Ms. Bonilla does not have any complaints, other than she had some trouble sleeping last night due to constipation. She also notes some chest pain at 5/ 10 level, and denies shortness of breath. - Objective MAR Reviewed: Yes Vital Signs & Weight: Vital Signs (12 hours) Temp Pulse Resp BP Pulse Ox 05/04/17 07:00 98.7 F 84 18 97 05/04/17 03:38 178/60 H 05/04/17 03:20 98.3 F 65 14 96 05/04/17 00:33 96 05/04/17 00:12 98.2 F 80 32 H 96 05/04/17 00:10 168/72 H 05/03/17 22:23 158/52 H 05/03/17 21:11 69 Weight Weight 166 lb 14.4 oz I&O: 05/03/17 05/04/17 05/05/17 06:59 06:59 06:59 Intake Total 460 540 Balance 460 540 Result Diagrams: 05/04/17 08:06 05/02/17 02:38 Additional Labs: Accuchecks 05/03/17 05/03/17 05/03/17 20:40 17:14 11:55 POC Glucose 434 H 366 H 272 H Phys Exam - Physical Examination HEENT: PERRLA Respiratory: no wheezing, no rales, no rhonchi, clear to auscultation bilateral Cardiovascular: RRR, no significant murmur Gastrointestinal: soft, non-tender, positive bowel sounds Musculoskeletal: no edema Dx/Plan (1) NSTEMI (non-ST elevated myocardial infarction) Code(s): I21.4 - NON-ST ELEVATION (NSTEMI) MYOCARDIAL INFARCTION Status: Acute (2) End stage renal disease Code(s): N18.6 - END STAGE RENAL DISEASE Status: Acute (3) Diabetes mellitus type 2 in nonobese Code(s): E11.9 - TYPE 2 DIABETES MELLITUS WITHOUT COMPLICATIONS Status: Acute (4) Generalized weakness Code(s): R53.1 - WEAKNESS Status: Acute (5) UTI (urinary tract infection) Status: Acute - Plan * NSTEMI- clinically stable, treating medically * HTN- blood pressure has been elevated- will change oral Clonidine to the patch , hopefully for smoother blood pressure control * DM- blood glucose is elevated - will add a scheduled insulin * PT to assess her physical discharge needs * UTI- continue cipro.
[2017-05-04] MEDS ORDERED: cloNIDine 0.2mg/24 Hour PATCH TD SCH (09:00)
[2017-05-04] MEDS: Insulin Detemir 100 UNITS/ML 15 UNITS in Pre-Filled Syringe 1 EACH SC SCH (09:56)
[2017-05-04] MEDS: predniSONE 5 MG TAB PO SCH (09:57)
[2017-05-04] MEDS: Aspirin 81 mg Enteric Coated Tablet PO SCH (09:57)
[2017-05-04] MEDS: Clopidogrel Bisulfate 75 MG TAB PO SCH (09:58)
[2017-05-04] MEDS: Isosorbide Dinitrate 20 MG TAB PO SCH ×3 (09:58→20:48)
[2017-05-04] MEDS: Metoprolol Tartrate 25 MG TAB PO SCH (09:59)
[2017-05-04] MEDS: Cipro 250 MG TAB PO SCH (12:56)
[2017-05-04] MEDS ORDERED: Calcium Carbonate 500 MG ChewTAB PO PRN (13:27)
[2017-05-04] MEDS: Nitroglycerin 0.4 MG TAB (25 Tab Bottle) PO PRN (13:32)
--- NOTE | 2017-05-04 13:54 | PRG ---
DATE OF SERVICE: 05/04/2017 SUBJECTIVE: Ms. Bonilla is having some substernal chest pain this afternoon. I asked the nurse to g rob her nitroglycerin. PHYSICAL EXAMINATION: VITAL SIGNS: Blood pressure was high 178/60, pulse 80. LUNGS: Clear. CARDIAC: Normal S1, S2. ABDOMEN: Soft, nontender. EXTREMITIES: No edema. ASSESSMENT: 1. End-stage renal disease, and the patient has declined dialysis, creatinine was 6.43 on the . 2. Coronary artery disease, status post procedures done by Dr. Wyatt, her clinical application consultant. 3. Do not resuscitate status. 4. Hypertension. PLAN: 1. Increase amlodipine. 2. Nitrates if needed. 3. Obviously medical therapy is the only option in this case. She has declined dialysis and has cr eatinine 6.43, estimated GFR of 6. A contrast exposure would almost certainly result in complete lo ss of renal function which would likely result in her shortly. This would not be appropriate.
[2017-05-04] MEDS: traMADol HCl 50 MG TAB PO PRN (14:47)
[2017-05-04] MEDS: Atorvastatin Calcium 40 MG TAB PO SCH (20:44)
[2017-05-04] MEDS: Metoprolol Tartrate 50 MG TAB PO SCH (20:48)
[2017-05-04] MEDS ORDERED: Insulin Detemir 100 UNITS/ML 15 UNITS in Pre-Filled Syringe 1 EACH SC SCH (21:00)
[2017-05-05] MEDS: HumaLOG 300 UNITS/3 ML VIAL SC PRN ×2 (06:22→11:35)
[2017-05-05 07:52] VITALS: TEMP 98.1
[2017-05-05] MEDS: Aspirin 81 mg Enteric Coated Tablet PO SCH (08:12)
[2017-05-05] MEDS: Cipro 250 MG TAB PO SCH (08:13)
[2017-05-05] MEDS: Metoprolol Tartrate 50 MG TAB PO SCH (08:13)
[2017-05-05] MEDS: Clopidogrel Bisulfate 75 MG TAB PO SCH (08:13)
[2017-05-05] MEDS: Isosorbide Dinitrate 20 MG TAB PO SCH (08:13)
[2017-05-05] MEDS: predniSONE 5 MG TAB PO SCH (08:13)
[2017-05-05] MEDS: Insulin Detemir 100 UNITS/ML 15 UNITS in Pre-Filled Syringe 1 EACH SC SCH (08:14)
[2017-05-05] MEDS: traMADol HCl 50 MG TAB PO PRN (09:20)
--- NOTE | 2017-05-05 10:37 | PDOC.PN ---
- Subjective Encounter Start Date: 05/05/17 Encounter Start Time: 10:34 Ms. Bonilla does not have any complaints, except for knee pain, and some pain in her hands which she attributes to Rheumatoid arthritis. - Objective MAR Reviewed: Yes Vital Signs & Weight: Vital Signs (12 hours) Temp Pulse Resp BP Pulse Ox 05/05/17 08:35 98.1 F 65 14 95 05/05/17 07:51 98.1 F 65 14 140/60 95 05/05/17 04:00 98.5 F 75 20 170/60 H 94 L 05/05/17 00:44 98.3 F 63 20 142/60 H 92 L Weight Weight 169 lb I&O: 05/04/17 05/05/17 05/06/17 06:59 06:59 06:59 Intake Total 540 1340 Balance 540 1340 Result Diagrams: 05/04/17 08:06 05/02/17 02:38 Additional Labs: Accuchecks 05/05/17 05/04/17 05/04/17 05:21 22:24 20:33 POC Glucose 205 H 321 H 223 H 05/04/17 05/04/17 05/04/17 17:07 11:07 06:42 POC Glucose 302 H 206 H 210 H Phys Exam - Physical Examination HEENT: PERRLA Respiratory: no wheezing, no rales, no rhonchi, clear to auscultation bilateral Cardiovascular: RRR, no significant murmur Gastrointestinal: soft, non-tender, positive bowel sounds Musculoskeletal: no edema Dx/Plan (1) NSTEMI (non-ST elevated myocardial infarction) Code(s): I21.4 - NON-ST ELEVATION (NSTEMI) MYOCARDIAL INFARCTION Status: Acute (2) End stage renal disease Code(s): N18.6 - END STAGE RENAL DISEASE Status: Acute (3) Diabetes mellitus type 2 in nonobese Code(s): E11.9 - TYPE 2 DIABETES MELLITUS WITHOUT COMPLICATIONS Status: Acute (4) Generalized weakness Code(s): R53.1 - WEAKNESS Status: Acute (5) UTI (urinary tract infection) Status: Acute - Plan * NSTEMI- clinically stable-continue medical treatment * UTI- due to enterococcus- continue Cipro * HTN- blood pressure is a bit better * DM- blood glucose is elevated- will monitor the trend, and titrate insulin as needed * Patient has decided to pursue shelter treatment prior to discharge.
[2017-05-05] MEDS: Acetaminophen 325 MG TAB PO PRN (11:48)
[2017-05-05 13:53] VITALS: BP 168/68
--- NOTE | 2017-05-05 14:18 | DIS ---
DATE OF ADMISSION: 04/29/2017 DATE OF DISCHARGE: 05/05/2017 PRIMARY CARE PHYSICIAN: Dr. Chapin Reeves. DISCHARGE DISPOSITION: Home. PRIMARY DISCHARGE DIAGNOSES: 1. Urinary tract infection secondary to Enterococcus. 2. Sepsis secondary to #1. 3. Non-ST elevation myocardial infarction, type 2. 4. End-stage renal disease, not on hemodialysis. 5. Hypertensive urgency. 6. Coronary artery disease. DISCHARGE MEDICATIONS: Include ciprofloxacin 250 mg 1 tablet every 18 hours for 4 more days, Lipito r 40 mg daily, aspirin 81 mg daily, Levemir insulin 15 units subQ at bedtime, Isordil 40 mg t.i.d., Protonix 40 mg daily, Norvasc was increased to 10 mg daily, clonidine was changed to clonidine patch 0.2 mg every 7 days topical, hydralazine 100 mg t.i.d. and prednisone 5 mg daily. PROCEDURES DONE DURING ADMISSION: The patient had an echo and the ejection fraction was estimated a t 60-65%. There was mild concentric left ventricular hypertrophy. CODE STATUS: DNR. ALLERGIES: CODEINE, PENICILLIN and SULFA. HOSPITAL COURSE: Ms. Bonilla is a pleasant 82-year-old female that presented to the emergency room w ith complaints of generalized weakness and her family said that she seemed somewhat different to the m as well and she was having fever. She was found to have a urinary tract infection with a metaboli c encephalopathy as well as sepsis. Urine culture grew Enterococcus, which was pansensitive. The p atient also has end-stage renal disease with a GFR less than 8. She was not acidotic or hyperkalemi c. However, the patient states that she does not want dialysis and has refused this on previous occ asion and continues to not want this and she understands the consequences. She also developed a non -ST segment elevated AL and thought to be a type 2 NSTEMI from the sepsis. This was treated medical ly. The patient's mental status improved dramatically during the course of her hospital stay where she had been previously extremely lethargic and unable to answer questions according to family. She is now alert and withered, and very appropriate. She made her own decision to be transferred to [facility] half-way facility for further physical therapy and then likely to be transitioned back home , possibly once again with home hospice.
== END 2017-05-05 14:04 | DRG 871 ==
LOC: ERS 15:24 → IMCU/EMU 21:23 → 2SE 05-01 10:37
PROVIDERS: ADMIT Internal Medicine; ATTEND Internal Medicine
DX: A41.9 Sepsis, unspecified organism (principal); N18.6 End stage renal disease; J96.01 Acute respiratory failure with hypoxia; I21.4 Non-ST elevation (NSTEMI) myocardial infarction; G93.41 Metabolic encephalopathy; I12.0 Hypertensive chronic kidney disease with stage 5 chronic kidney disease or end stage renal disease; N39.0 Urinary tract infection, site not specified; R65.20 Severe sepsis without septic shock; E11.22 Type 2 diabetes mellitus with diabetic chronic kidney disease; E87.6 Hypokalemia; I16.0 Hypertensive urgency; K21.9 Gastro-esophageal reflux disease without esophagitis; E78.5 Hyperlipidemia, unspecified; I25.2 Old myocardial infarction; Z66 Do not resuscitate; Z79.82 Long term (current) use of aspirin; Z79.4 Long term (current) use of insulin; Z88.6 Allergy status to analgesic agent; Z88.0 Allergy status to penicillin; Z88.2 Allergy status to sulfonamides; I25.10 Atherosclerotic heart disease of native coronary artery without angina pectoris; B95.2 Enterococcus as the cause of diseases classified elsewhere
CPT/HCPCS: 36415; 36416; 51701; 71010; 80048; 80053; 80061; 81003; 81015; 82550; 82553; 83605; 84484; 85014; 85018; 85025; 85049; 85730; 87040; 87077; 87086; 87186; 93005; 93010; 93306; 93798; 94760; 96361; 96365; 96367; 96375; 96376; A4216; G8978-GP-CM; G8979-GP-CL; G8987-GO-CL; G8988-GO-CJ; J0360; J0696; J1644; J1815; J2270; J3370

== ENCOUNTER 2017-05-20 06:56 | Emergency (ER) | payer MEDICARE ==
[2017-05-20 07:20] LABS: #Basophils 0.1 thou/uL (0.0-0.2); #Eosinphils 0.1 thou/uL (0.0-0.7); #Lymphocytes 2.8 thou/uL (1.20-3.40); #Neutrophils 15.3 thou/uL (1.40-6.50); %Basophils 0.4 % (0.0-1.0); %Eosinophils 0.4 % (0.0-10.0); %Lymphocytes 14.6 % (21.0-51.0); Hematocrit 27.1 % (36.0-47.0); Mean Platelet Volume 7.5 fL (7.4-10.4); Red Blood Cell (RBC) Count 2.95 mill/uL (4.20-5.40); White Blood Cell (WBC) Count 19.2 thou/uL (4.8-10.8)
[2017-05-20] MEDS ORDERED: Nitroglycerin 2% Ointment 1 INCH/1 GM Packet ONE (07:27)
[2017-05-20 07:42] LABS: ALT (SGPT) 52 U/L (8-55); AST (SGOT) 61 U/L (5-34); Alkaline Phosphatase 177 U/L (40-150); Anion Gap 19 mmol/L (10-20); BUN (Urea Nitrogen) 63 mg/dL (9.8-20.1); Bilirubin, Total 0.2 mg/dL (0.2-1.2); CK (CPK) 33 U/L (29-168); Calc. Creatinine Clearance 0 mL/min (70-130); Calcium 9.5 mg/dL (7.8-10.44); Carbon Dioxide 18 mmol/L (23-31); Chloride 104 mmol/L (98-107); Estimated GFR-MDRD 14; Globulin 3.1 g/dL (2.4-3.5); Protein, Total 6.5 g/dL (6.0-8.3)
[2017-05-20 07:48] LABS: Troponin I 0.069 ng/mL (< 0.028)
--- NOTE | 2017-05-20 07:51 | RAD ---
PORTABLE CHEST: HISTORY: Chest pain. COMPARISON: 05/02/2017. FINDINGS: Mild cardiomegaly. Mild vascular engorgement. No focal infiltrate or consolidation. I cannot excl ude small effusions. IMPRESSION: Mild cardiomegaly and mild vascular engorgement. POS: [facility]
[2017-05-20 10:52] LABS: Troponin I 0.064 ng/mL (< 0.028)
--- NOTE | 2017-05-30 16:38 | EKG ---
Test Reason : CP Blood Pressure : / mmHG Vent. Rate : 094 BPM Atrial Rate : 094 BPM P-R Int : 150 ms QRS Dur : 092 ms QT Int : 374 ms P-R-T Axes : 051 008 120 degrees QTc Int : 467 ms Normal sinus rhythm Possible Left atrial enlargement Abnormal ECG Similar 29-APR-2017 Confirmed by SIMRAN STAHL, FANTA ([id number]), material expeditor KATIE GARZON ([id number]) on 05/30/2017 4:38:23 PM Referred By: Confirmed By:FANTA KHALIL MD
== END 2017-05-20 13:11 | disposition home or self-care (01) ==
LOC: ERS 06:56
DX: R07.89 Other chest pain (principal); I25.2 Old myocardial infarction; I12.9 Hypertensive chronic kidney disease with stage 1 through stage 4 chronic kidney disease, or unspecified chronic kidney disease; N18.9 Chronic kidney disease, unspecified; E11.9 Type 2 diabetes mellitus without complications; K21.9 Gastro-esophageal reflux disease without esophagitis; E78.5 Hyperlipidemia, unspecified; F41.9 Anxiety disorder, unspecified; Z79.82 Long term (current) use of aspirin; Z79.4 Long term (current) use of insulin; Z79.899 Other long term (current) drug therapy
CPT/HCPCS: 36415; 36416; 71010; 80053; 82550; 82553; 83880; 84484; 85025; 93005

== ENCOUNTER 2017-05-24 01:31 | Inpatient (IN) | payer MEDICARE ==
[2017-05-24 01:30] LABS: Troponin I 0.099 ng/mL (< 0.028)
[~2017-05-24 01:31] MED LIST: Furosemide 40 MG/4 ML VIAL ONE; Nitroglycerin 2% Ointment 1 INCH/1 GM Packet ONE
[2017-05-24 02:00] LABS: #Basophils 0.1 thou/uL (0.0-0.2); #Eosinphils 0.1 thou/uL (0.0-0.7); #Lymphocytes 2.1 thou/uL (1.20-3.40); #Monocytes 0.6 thou/uL (0.11-0.59); #Neutrophils 7.7 thou/uL (1.40-6.50); %Basophils 1.1 % (0.0-1.0); %Eosinophils 0.8 % (0.0-10.0); %Lymphocytes 19.7 % (21.0-51.0); %Monocytes 5.3 % (0.0-10.0); ALT (SGPT) 61 U/L (8-55); AST (SGOT) 56 U/L (5-34); Alkaline Phosphatase 291 U/L (40-150); Anion Gap 17 mmol/L (10-20); BUN (Urea Nitrogen) 70 mg/dL (9.8-20.1); Bilirubin, Total 0.4 mg/dL (0.2-1.2); CK (CPK) 34 U/L (29-168); Calc. Creatinine Clearance 0 mL/min (70-130); Calcium 9.7 mg/dL (7.8-10.44); Carbon Dioxide 19 mmol/L (23-31); Chloride 97 mmol/L (98-107); Estimated GFR-MDRD 13; Globulin 3.4 g/dL (2.4-3.5); Hematocrit 24.1 % (36.0-47.0); Lipase 20 U/L (8-78); Mean Platelet Volume 7.3 fL (7.4-10.4); Protein, Total 6.7 g/dL (6.0-8.3); Red Blood Cell (RBC) Count 2.66 mill/uL (4.20-5.40); White Blood Cell (WBC) Count 10.5 thou/uL (4.8-10.8)
[2017-05-24] MEDS ORDERED: Ondansetron ODT 4 MG TAB SL PRN (02:49)
[2017-05-24] MEDS ORDERED: Ondansetron HCl/PF 4 MG/2 ML Vial IVP PRN (02:49)
[2017-05-24 05:18] LABS: Troponin I 0.092 ng/mL (< 0.028)
--- NOTE | 2017-05-24 05:34 | PDOC.EVN ---
Event Note - Event Note Event Note: [id number] h&p dictated 1. Chest pain 2. HTN 3. HPL 4. H/O CAD 5. DM type 2 plan: see orders
[2017-05-24] MEDS ORDERED: Acetaminophen 325 MG TAB PO PRN (05:56)
[2017-05-24] MEDS ORDERED: Dextrose 5% in Water 1,000 ML IV PRN (05:59)
[2017-05-24] MEDS ORDERED: Dextrose 50% Abboject 50 ML SYRINGE SLOW IVP PRN (05:59)
[2017-05-24] MEDS: Nitroglycerin 2% Ointment 1 INCH/1 GM Packet TOP SCH ×3 (06:00→17:50)
--- NOTE | 2017-05-24 06:17 | HP ---
DATE OF ADMISSION: 05/24/2017 CHIEF COMPLAINT: Chest pain. HISTORY OF PRESENT ILLNESS: Patient is an 82-year-old female with past medical history of CKD stage 4-5, hypertension, diabetes mellitus type 2, coronary artery disease, hyperlipidemia, who came here with complaint of chest pain. The patient started having chest pain all of sudden and woke up from sleep. Chest pain is substernal pressure kind of pain, denies any radiation associated with some d yspnea. Denies any sweating, denies any nausea, denies any vomiting, denies any dizziness. Pain is 5/10. Denies any fever, denies any chills, denies cough, denies sputum production, denies any head ache. PAST MEDICAL HISTORY: As per HPI. PAST SURGICAL HISTORY: Cardiac stents, hysterectomy. ALLERGIES: PENICILLIN, CODEINE, SULFA. SOCIAL HISTORY: Denies smoking, denies alcohol, denies any drugs. FAMILY HISTORY: Positive for heart problems. MEDICATIONS: Reviewed. REVIEW OF SYSTEMS: Constitutional: Denies any fever, denies any chills. Eyes: Denies any vision problems. Ears: Denies any hearing loss. Neck: Denies any neck pain. Cardiovascular: Positive for chest pain. Respiratory: Denies any cough, denies any sputum production. Gastrointestinal: Denies nausea, vomiting. Musculoskeletal: Denies any joint deformities. Integumentary: Denies an y rash. Psychiatric: Endorses anxiety. Cranial Nervous System: Denies syncope. All other review of systems are reviewed and are negative. PHYSICAL EXAMINATION: CONSTITUTIONAL/VITAL SIGNS: At the time of H\T\P performed, temperature 98.0, heart rate 90, respir ation 20, blood pressure is 161/70, pulse oximetry 92% on 2 liters. GENERAL: The patient appears tired. HEENT: Anterior nares patent. Nose normal. Ears normal. Teeth intact. Tongue is moist. NECK: Supple. No JVD. CARDIOVASCULAR SYSTEM: S1, S2 present, regular rate and rhythm. There are no murmurs, no rubs, no gallops. RESPIRATORY SYSTEM: No wheezing, no rhonchi. Breath sounds bilaterally. GASTROINTESTINAL: Abdomen is soft, nontender, no guarding, no organomegaly, no masses felt. MUSCULOSKELETAL: No edema. INTEGUMENTARY: No rashes seen. PSYCHIATRIC: Mood appropriate at this time. LABORATORY DATA: Labs at the time of H\T\P performed, sodium 128, potassium 4.6, chloride 97, CO2 1 9, BUN 70, creatinine 3.46, alkaline phosphatase of 291, troponin 0.092, albumin 3.3, globulin 3.4. White count 10.5, hemoglobin 7.9, platelet count is 377. ASSESSMENT AND PLAN: The patient is an 82-year-old female. 1. Chest pain. We need to rule out cardiac etiology. EKG did show some prominent T waves in V2, V 3. We will go ahead and consult cardiology to evaluate the patient. We will monitor the patient cl osely. 2. Hypertension. Monitor blood pressures. Continue home blood pressure medications. 3. Diabetes mellitus type 2. Monitor blood sugars. We will do insulin sliding scale. 4. History of coronary artery disease. Continue aspirin. 5. History of hyperlipidemia. Continue statin. 6. Anemia of chronic disease. Monitor hemoglobin closely. We will need the erythropoiesis-stimula ting agent now. We will consult Nephrology to evaluate the patient. 7. History of chronic kidney disease stage 4-5. Monitor creatinine closely. Plan to consult Nephr ology to evaluate the patient. The case was discussed in detail with the patient.
[2017-05-24 07:38] LABS: Troponin I 0.087 ng/mL (< 0.028)
[2017-05-24] MEDS: Aspirin 325 MG TAB PO SCH (08:17)
[2017-05-24] MEDS: hydrALAZINE 25 MG TAB PO SCH ×3 (08:18→22:31)
[2017-05-24] MEDS: HYDROcodone/Acetaminophen 5/325 mg Tablet PO PRN ×2 (08:21→16:03)
[2017-05-24] MEDS: Amlodipine 10 MG TAB PO SCH (08:21)
[2017-05-24] MEDS: Clopidogrel Bisulfate 75 MG TAB PO SCH (08:22)
[2017-05-24] MEDS: Heparin 5,000 UNITS/ML VIAL SC SCH ×3 (08:22→20:35)
[2017-05-24] MEDS ORDERED: cloNIDine 0.2mg/24 Hour PATCH TD SCH (09:00)
--- NOTE | 2017-05-24 09:58 | RAD ---
CHEST 1 VIEW: Date: 05/24/17 HISTORY: Chest pain. COMPARISON: 05/20/17. FINDINGS: Cardiac silhouette is magnified and enlarged. Pulmonary vasculature is more engorged than on the donaldo or study with increasing patchy bilateral air space opacity. Mediastinum remains midline. Calcified granulomata are consistent with healed granulomatous disease. There are degenerative changes of each shoulder. IMPRESSION: Worsening pulmonary vascular congestion with increasing patchy bilateral infiltrates. Close continue d radiographic follow-up is suggested. POS: [facility]
[2017-05-24] MEDS ORDERED: MORPHINE 10 MG/ML SYRINGE IV PRN (11:46)
--- NOTE | 2017-05-24 11:49 | PDOC.PN ---
- Subjective Encounter Start Date: 05/24/17 Encounter Start Time: 11:47 Ms. Bonilla is still having about 5/10 chest pain. she says it is still " stinging pretty bad". It is better than last night, at which time it was an 8/ 10. - Objective MAR Reviewed: Yes Vital Signs & Weight: Vital Signs (12 hours) Temp Pulse Resp BP BP Pulse Ox 05/24/17 08:30 97.9 F 98 17 195/78 H 92 L 05/24/17 08:21 90 195/78 H 05/24/17 08:18 98 195/78 H 05/24/17 08:00 97.9 F 98 17 92 L 05/24/17 04:00 98.0 F 90 20 92 L 05/24/17 03:00 98 F 78 18 168/70 H 92 L 05/24/17 02:45 98 F 78 18 92 L I&O: 05/23/17 05/24/17 05/25/17 07:59 06:59 06:59 Intake Total 100 Balance 100 Result Diagrams: 05/24/17 01:49 EQUAL OPPORTUNITY ASSISTANT 05/24/17 01:49 EQUAL OPPORTUNITY ASSISTANT Additional Labs: Accuchecks 05/24/17 05/24/17 11:14 06:48 POC Glucose 183 H 168 H Phys Exam - Physical Examination HEENT: PERRLA Respiratory: no wheezing, no rales, no rhonchi, clear to auscultation bilateral Cardiovascular: RRR, no significant murmur, no rub Gastrointestinal: soft, non-tender, positive bowel sounds Musculoskeletal: no edema Dx/Plan (1) Chest pain Code(s): R07.9 - CHEST PAIN, UNSPECIFIED Status: Acute (2) Coronary artery disease Code(s): I25.10 - ATHSCL HEART DISEASE OF [place] CORONARY ARTERY W/O ANG PCTRS Status: Acute (3) Diabetes mellitus type 2 in nonobese Code(s): E11.9 - TYPE 2 DIABETES MELLITUS WITHOUT COMPLICATIONS Status: Acute (4) End stage renal disease Code(s): N18.6 - END STAGE RENAL DISEASE Status: Acute (5) Hypertensive urgency Code(s): I16.0 - HYPERTENSIVE URGENCY Status: Resolved - Plan * Chest pain- likely stable angina- she normally see Dr. Wyatt as her Stopper Maker. She was evaluated by Cardiology on her last admission, and those recommendations were noted. She is to be treated medically. * HTN- her blood pressure is still elevated- will add Labetalol * ESRD- patient has refused dialysis in the past, and is being treated medically for this * Her Diuretic were held on her last admission due to worsening renal function. She is now a bit volme overloaded- will give a single dose of Lasix IV- her diuretics will have to be managed on a day by day bases given her advanced renal disease * Await Cardiology evaluation. * Monitor electrolytes * DM- blood glucose is stable * I have confirmed that she does not want Dialysis again, and would like to continue DNR status.
[2017-05-24] MEDS ORDERED: Furosemide 40 MG/4 ML VIAL SLOW IVP SCH ×2 (13:30→17:00)
[2017-05-24] MEDS ORDERED: Epoetin (ESRD) 20,000 UNITS/ML SC SCH (13:45)
[2017-05-24] MEDS ORDERED: Labetalol 100 MG TAB PO SCH ×2 (15:00→21:00)
[2017-05-24] MEDS: HumaLOG 300 UNITS/3 ML VIAL SC PRN (17:51)
[2017-05-24] MEDS: Labetalol 100 MG TAB PO SCH (22:29)
[2017-05-24] MEDS: Atorvastatin Calcium 40 MG TAB PO SCH (22:31)
[2017-05-25] MEDS: Nitroglycerin 2% Ointment 1 INCH/1 GM Packet TOP SCH ×5 (00:27→23:55)
[2017-05-25] MEDS: HYDROcodone/Acetaminophen 5/325 mg Tablet PO PRN (00:36)
--- NOTE | 2017-05-25 00:52 | CON ---
DATE OF CONSULTATION: 05/24/2017 HISTORY OF PRESENT ILLNESS: The patient is an 82-year-old woman who presents with increasing dyspnea and chest discomfort. The patient has a long history of coronary artery disease. The patient has previously undergone multiple stents placed in the coronary arteries. The patient was recently hospitalized with chest pain and dyspnea. She has chronic renal failure and is being treated with medical therapy. The patient recently was in the emergency room with elevated blood pressure and chest pain. She was subsequently released. The patient presented once again with recurrent chest discomfort. She felt dyspneic and had noticed increasing edema. The patient reports continued chest discomfort. PAST MEDICAL HISTORY: 1. Coronary artery disease. 2. Diabetes mellitus. 3. Hypertension. 4. Dyslipidemia. 5. Chronic renal insufficiency. 6. History of CVA. PAST SURGICAL HISTORY: Hysterectomy, carpal tunnel surgery, appendectomy, cataract surgery. SOCIAL HISTORY: Nonsmoker. ALLERGIES: CODEINE, PENICILLINS, SULFA DRUGS. MEDICATIONS ON ADMISSION: Prednisone 5 q.a.m., hydralazine 100 t.i.d., clonidine 0.2 TTS patch daily, Isordil 40 t.i.d., insulin 40 units daily, Plavix 75 daily, Lipitor 40 at bedtime, and Norvasc 10 daily. REVIEW OF SYSTEMS: Noticeable for increasing weakness and limited mobility. A ten-point system otherwise unremarkable. PHYSICAL EXAMINATION: GENERAL: Elderly woman in mild distress. VITAL SIGNS: Blood pressure 168/70. NECK: Full. LUNGS: Have a few crackles in both bases. HEART: Regular rate and rhythm. Normal S1, S2, with no murmurs. ABDOMEN: Nondistended. EXTREMITIES: Show mild bilateral edema. SKIN: Warm and dry. NEUROLOGIC: Nonfocal. VASCULAR: Radial pulses are 2+. LABORATORY DATA: White blood cell count 10.5, hemoglobin 7.9, hematocrit 24.4, and platelets 377. Sodium is 128, potassium 4.6, chloride 97, bicarbonate 19, BUN 70, creatinine 3.46. Troponin was 0.092. Her EKG reveals normal sinus rhythm with a nonspecific ST-T wave abnormality. IMPRESSION: 1. Chest pain. 2. History of percutaneous transluminal coronary angioplasty and stent placement. 3. Chronic renal insufficiency. 4. Diabetes mellitus. 5. Hypertension. This patient presents with increasing chest pain and dyspnea. Her weight is up approximately 10 pounds. We will start the patient back on IV Lasix. We will add Ranexa for chronic angina. We will follow this patient with you through hospitalization. ANDRE
[2017-05-25 05:27] LABS: #Eosinphils 0.1 thou/uL (0.0-0.7); #Lymphocytes 1.6 thou/uL (1.20-3.40); #Monocytes 0.5 thou/uL (0.11-0.59); #Neutrophils 6.1 thou/uL (1.40-6.50); %Basophils 0.6 % (0.0-1.0); %Eosinophils 1.3 % (0.0-10.0); %Monocytes 6.2 % (0.0-10.0); Hematocrit 22.4 % (36.0-47.0); Mean Platelet Volume 7.5 fL (7.4-10.4); Red Blood Cell (RBC) Count 2.46 mill/uL (4.20-5.40); White Blood Cell (WBC) Count 8.4 thou/uL (4.8-10.8)
[2017-05-25 05:33] LABS: Anion Gap 14 mmol/L (10-20); BUN (Urea Nitrogen) 65 mg/dL (9.8-20.1); Calc. Creatinine Clearance 17 mL/min (70-130); Calcium 9.2 mg/dL (7.8-10.44); Carbon Dioxide 21 mmol/L (23-31); Chloride 99 mmol/L (98-107); Estimated GFR-MDRD 13; Iron 16 ug/dL (50-170)
--- NOTE | 2017-05-25 08:00 | PDOC.PN ---
- Subjective Encounter Start Date: 05/25/17 Encounter Start Time: 08:50 Subjective: Patient with persistent chest pain, possibly a little better. BP still -: spiking high overnight. - Objective Resuscitation Status: Resuscitation Status DNR:Do Not Resuscitate MAR Reviewed: Yes Vital Signs & Weight: Vital Signs (12 hours) Temp Pulse Resp BP BP Pulse Ox 05/25/17 05:00 98 F 87 18 150/66 H 05/24/17 22:31 90 204/77 H 05/24/17 22:29 90 168/70 H 05/24/17 20:00 98.1 F 80 18 92 L Weight Weight 168 lb I&O: 05/24/17 05/25/17 05/26/17 06:59 06:59 06:59 Intake Total 1180 Balance 1180 Result Diagrams: 05/25/17 04:09 05/25/17 04:09 Additional Labs: Accuchecks 05/25/17 05/24/17 05/24/17 06:11 20:35 16:49 POC Glucose 150 H 228 H 194 H 05/24/17 11:14 POC Glucose 183 H Phys Exam - Physical Examination Constitutional: NAD HEENT: moist MMs Respiratory: no wheezing, no rhonchi mild bibasilar rales, good air movement Cardiovascular: RRR, no significant murmur Gastrointestinal: soft, non-tender, positive bowel sounds Musculoskeletal: no edema Neurological: non-focal, moves all 4 limbs Psychiatric: normal affect Dx/Plan (1) Chest pain Code(s): R07.9 - CHEST PAIN, UNSPECIFIED Status: Acute Plan: Medical management (2) Hypertension Code(s): I10 - ESSENTIAL (PRIMARY) HYPERTENSION Status: Chronic Plan: Switching Amlodipine to Procardia XL and titrating up as needed. (3) Coronary artery disease Code(s): I25.10 - ATHSCL HEART DISEASE OF [place] CORONARY ARTERY W/O ANG PCTRS Status: Chronic (4) Diabetes mellitus type 2 in nonobese Code(s): E11.9 - TYPE 2 DIABETES MELLITUS WITHOUT COMPLICATIONS Status: Chronic (5) End stage renal disease Code(s): N18.6 - END STAGE RENAL DISEASE Status: Chronic - Plan cont current plan of care Appreciate cardiology input. * . - Discharge Day Encounter end time: 09:10
[2017-05-25] MEDS: Aspirin 325 MG TAB PO SCH (08:12)
[2017-05-25] MEDS: hydrALAZINE 25 MG TAB PO SCH ×3 (08:12→21:38)
[2017-05-25] MEDS: Amlodipine 10 MG TAB PO SCH (08:12)
[2017-05-25] MEDS: Labetalol 100 MG TAB PO SCH ×2 (08:12→21:37)
[2017-05-25] MEDS: Furosemide 40 MG/4 ML VIAL SLOW IVP SCH (08:12)
[2017-05-25] MEDS: Clopidogrel Bisulfate 75 MG TAB PO SCH (08:12)
[2017-05-25] MEDS: Heparin 5,000 UNITS/ML VIAL SC SCH ×3 (08:13→21:38)
[2017-05-25] MEDS ORDERED: NIFEdipine XL 60 MG TAB PO SCH (09:00)
--- NOTE | 2017-05-25 09:13 | PRG ---
DATE OF SERVICE: 05/25/2017 Ms. Bonilla is not having chest pain today, but she was readmitted to the hospital with intractable c hest pain associated with severe hypertension, even last night her blood pressure was 204/77, today 1677/74, pulse 86 and regular. PHYSICAL EXAMINATION: LUNGS: She has bibasilar rales. CARDIAC: Normal S1, normal S2. ABDOMEN: Soft, nontender. EXTREMITIES: No edema. LABORATORY DATA: Hemoglobin is 7.1. ASSESSMENT: 1. Intractable angina. 2. Near end-stage renal disease with an estimated GFR of 13. 3. Hypertension. 4. Anemia. PLAN: 1. Change from amlodipine to nifedipine higher dose if needed, will start with 60 mg daily, go to 9 0 if needed. 2. Consideration for transfusion. 3. Continue diuresis. 4. We will stop Ranexa at this time. I think her problems looks like it is mostly hypertension and anemia as well.
[2017-05-25] MEDS: HumaLOG 300 UNITS/3 ML VIAL SC PRN (12:13)
--- NOTE | 2017-05-25 12:38 | PQF ---
CLINICAL DOCUMENTATION IMPROVEMENT CLARIFICATION FORM: ICD-10 Updated PLEASE DO AN ADDENDUM TO THE PROGRESS NOTE WITH ANY DOCUMENTATION UPDATES OR ADDITIONS AND CARRY THROUGH TO DC SUMMARY. THANK YOU. DATE: 05/25/17 ATTN: DR. PINEDA Please exercise your independent, professional judgment in responding to the clarification form. Clinical indicators are provided on the bottom of this form for your review Please check appropriate box(s): HEART FAILURE: A.TYPE: [ ] Systolic / HFrEF [ X ] Diastolic / HFpEF [ ] Combined Systolic / Diastolic B.ACUITY [ X ] Acute[ ] Acute on Chronic [ ] Chronic C.WITH (if appropriate) [ ] Hypertensive Heart Disease[ X ] Hypertensive Heart and Kidney Disease [ ] Other diagnosis [ ] Unable to determine In addition, please specify: Present on Admission (POA): [ X ] Yes [ ] No [ ] Unable to determine For continuity of documentation, please document condition throughout progress notes and discharge summary. Thank You. 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 All Rights Reserved RALPH [email or web address] Office: [phone] [facility]
--- NOTE | 2017-05-25 20:13 | PRG ---
DATE OF SERVICE: 05/25/2017 SUBJECTIVE: Patient was seen and examined at bedside and overnight events noted. Patient denies an y shortness of breath or chest pain or palpitation. No history of nausea or vomiting or diarrhea or fever or chills or cramps. OBJECTIVE: GENERAL: This is a well-built female in no acute distress. VITAL SIGNS: Temperature 97, pulse 67, respiratory rate , blood pressure 136/64.. HEENT: Atraumatic and normocephalic. Oral mucosa is moist. NECK: Supple. CARDIOVASCULAR: S1 and S2 heard. Rate and rhythm regular. RESPIRATORY: Clear to auscultation. GASTROINTESTINAL: Abdomen is soft. MUSCULOSKELETAL: No tenderness. No edema. DERMATOLOGIC: No skin rash. NEUROLOGIC: Alert, awake and oriented x3. No focal neurologic deficits. Moving all the extremitie s. PSYCHIATRIC: Mood and affect normal. LABORATORY DATA: Potassium is 5.1, BUN is 65 and creatinine is 3.4. ASSESSMENT AND PLAN: 1. Acute kidney injury on chronic kidney disease stage 4. Renal function is stable. 2. Cardiorenal syndrome. Continue on Lasix. Follow up with the business intern. 3. Hyponatremia. Limit fluid intake. 4. Hypertension, stable. 5. Anemia, rule out bleed. 6. Continue on Lasix and follow with Cardiology.
[2017-05-25] MEDS: Atorvastatin Calcium 40 MG TAB PO SCH (21:37)
--- NOTE | 2017-05-26 05:53 | CON ---
NEPHROLOGY CONSULTATION NOTE DATE OF CONSULTATION: 05/24/2017 CONSULTING PHYSICIAN: Dr. Gomez. REASON FOR CONSULTATION: Acute kidney injury. REASON FOR ADMISSION: Chest pain. HISTORY OF PRESENT ILLNESS: This is an 82-year-old female with history of chronic kidney disease, o n followup with Dr. Vega, hypertension, type 2 diabetes and coronary artery disease who came to the hospital with chest pain and was found to have elevated creatinine. 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 She even had a GFR of 7 and was on hospice at one point and was dischar ged from hospice during the last hospitalization. The patient is still having some shortness of [place] ath and chest pain. No fever or chills. No nausea, vomiting. No abdominal pain. PAST MEDICAL HISTORY: Positive for chronic kidney disease stage 5, hypertension, type 2 diabetes an d coronary artery disease. PAST SURGICAL HISTORY: Cardiac stent and hysterectomy. HOME MEDICATIONS: Include prednisone, hydralazine, clonidine, Protonix, Isordil, Levemir, clopidogr el, Lipitor and amlodipine. ALLERGIES: AMOXICILLIN, CODEINE, PENICILLIN and SULFA. SOCIAL HISTORY: No smoking or alcohol use. FAMILY HISTORY: No history of any kidney disease. REVIEW OF SYSTEMS: The following complete review of systems was negative, unless otherwise mentione d in the HPI or below: Constitutional: Weight loss or gain, ability to conduct usual activities. Skin: Rash, itching. Eyes: Double vision, pain. ENT/Mouth: Nose bleeding, neck stiffness, pain, tenderness. Cardiovascular: Palpitations, dyspnea on exertion, orthopnea. Respiratory: Shortness of breath, wheezing, cough, hemoptysis, fever or night sweats. Gastrointestinal: Poor appetite, abdominal pain, heartburn, nausea, vomiting, constipation, or diar byron. Genitourinary: Urgency, frequency, dysuria, nocturia. Musculoskeletal: Pain, swelling. Neurologic/Psychiatric: Anxiety, depression. Allergy/Immunologic: Skin rash, bleeding tendency. PHYSICAL EXAMINATION: GENERAL: This is a well-built female in no apparent distress. VITAL SIGNS: Temperature 98.9, pulse 70, respiratory rate 18 and blood pressure 177/70. HEENT: Atraumatic and normocephalic. Oral mucosa is moist. NECK: Supple. CARDIOVASCULAR: S1 and S2 heard. Rate and rhythm regular. RESPIRATORY: Clear. MUSCULOSKELETAL: 1+ edema. DERMATOLOGIC: No skin rash. NEUROLOGIC: Alert and awake. PSYCHIATRIC: Mood and affect normal. LABORATORY DATA: Potassium is 4.6, BUN is 70 and creatinine is 3.4. ASSESSMENT AND PLAN: 1. Acute kidney injury on chronic kidney disease stage 5. Patient is not far from baseline and mos t likely from cardiorenal syndrome. Patient does seem fluid overload and having shortness of breath . We will start on IV Lasix. 2. Hyponatremia. Limit fluid intake. Continue on Lasix. 3. Acidosis secondary to poor perfusion. 4. Cardiorenal syndrome. 5. Anemia, rule out any bleed. 6. Hypoalbuminemia. Increase protein intake. Plan is to start on Lasix and monitor. Follow up with Cardiology for optimization of cardiac medica tions. We will follow. Thank you for the consultation.
--- NOTE | 2017-05-26 08:52 | PRG ---
DATE OF SERVICE: 05/26/2017 SUBJECTIVE: Ms. Bonilla is doing okay, did not having chest pain or pressure currently. PHYSICAL EXAMINATION: VITAL SIGNS: Blood pressure is high 187/73, pulse 80, it is regular. LUNGS: Clear. CARDIAC: Normal S1, S2. ABDOMEN: Soft, nontender. EXTREMITIES: No edema. ASSESSMENT: 1. Coronary artery disease, severe. 2. Stage 5 renal failure. Estimated GFR is 13. 3. Severe anemia, hemoglobin 7.1. PLAN: 1. Give her 1 unit of packed red blood cells. 2. Give her a dose of Lasix intravenously. 3. The patient is do not resuscitate status.
[2017-05-26] MEDS ORDERED: NIFEdipine XL 90 MG TAB PO SCH (09:00)
[2017-05-26] MEDS ORDERED: Furosemide 40 MG/4 ML VIAL SLOW IVP SCH (09:15)
--- NOTE | 2017-05-26 09:19 | PDOC.PN ---
- Subjective Encounter Start Date: 05/26/17 Encounter Start Time: 10:00 Subjective: Patient mildly improved. No specific chest pain complaint this AM. - Objective Resuscitation Status: Resuscitation Status DNR:Do Not Resuscitate MAR Reviewed: Yes Vital Signs & Weight: Vital Signs (12 hours) Temp Pulse Resp BP BP Pulse Ox 05/26/17 07:20 99 F 80 20 187/73 H 92 L 05/26/17 04:00 98.4 F 76 18 148/68 H 92 L 05/26/17 00:00 98.1 F 78 18 166/72 H 92 L 05/25/17 21:38 72 150/70 H 05/25/17 21:37 72 150/70 H Weight Weight 169 lb I&O: 05/25/17 05/26/17 05/27/17 06:59 06:59 06:59 Intake Total 1180 600 Balance 1180 600 Result Diagrams: 05/25/17 04:09 05/25/17 04:09 Additional Labs: Accuchecks 05/26/17 05/25/17 05/25/17 06:01 20:22 16:49 POC Glucose 184 H 219 H 153 H 05/25/17 11:49 POC Glucose 210 H Phys Exam - Physical Examination Constitutional: NAD HEENT: moist MMs Respiratory: no wheezing, no rales, no rhonchi Cardiovascular: RRR Gastrointestinal: soft, non-tender, positive bowel sounds Musculoskeletal: no edema Neurological: non-focal, moves all 4 limbs Psychiatric: normal affect, A&O x 3 Dx/Plan (1) Chest pain Code(s): R07.9 - CHEST PAIN, UNSPECIFIED Status: Resolved (2) Hypertension Code(s): I10 - ESSENTIAL (PRIMARY) HYPERTENSION Status: Chronic (3) Coronary artery disease Code(s): I25.10 - ATHSCL HEART DISEASE OF [place] CORONARY ARTERY W/O ANG PCTRS Status: Chronic (4) Diabetes mellitus type 2 in nonobese Code(s): E11.9 - TYPE 2 DIABETES MELLITUS WITHOUT COMPLICATIONS Status: Chronic (5) End stage renal disease Code(s): N18.6 - END STAGE RENAL DISEASE Status: Chronic (6) Anemia in chronic renal disease Code(s): N18.9 - CHRONIC KIDNEY DISEASE, UNSPECIFIED; D63.1 - ANEMIA IN CHRONIC KIDNEY DISEASE Status: Chronic Plan: Will transfuse 1 unit PRBC followed by dAdie. - Plan cont current plan of care * . - Discharge Day Encounter end time: 10:40
[2017-05-26] MEDS: Heparin 5,000 UNITS/ML VIAL SC SCH ×3 (09:33→20:34)
[2017-05-26] MEDS: Aspirin 325 MG TAB PO SCH (09:33)
[2017-05-26] MEDS: Furosemide 40 MG/4 ML VIAL SLOW IVP SCH (09:33)
[2017-05-26] MEDS: hydrALAZINE 25 MG TAB PO SCH ×3 (09:33→20:29)
[2017-05-26] MEDS: Clopidogrel Bisulfate 75 MG TAB PO SCH (09:34)
[2017-05-26] MEDS: Labetalol 100 MG TAB PO SCH ×2 (09:34→20:28)
[2017-05-26] MEDS: HumaLOG 300 UNITS/3 ML VIAL SC PRN ×2 (13:00→18:08)
--- NOTE | 2017-05-26 13:00 | PRG ---
DATE OF SERVICE: 05/26/2017 SUBJECTIVE: Patient was seen and examined at bedside and overnight events noted. Patient denies an y shortness of breath or chest pain or palpitation. No history of nausea or vomiting or diarrhea or fever or chills or cramps. OBJECTIVE: GENERAL: This is a well-built female in no acute distress. VITAL SIGNS: Temperature 99.0, pulse 80, respiratory 20, blood pressure 187/73. HEENT: Atraumatic, normocephalic, oral mucosa is moist. NECK: Supple. CARDIOVASCULAR: S1, S2 heard, rate and rhythm regular. RESPIRATORY: . GASTROINTESTINAL: Abdomen is soft. MUSCULOSKELETAL: 1+ edema. DERMATOLOGIC: No skin rash. NEUROLOGIC: Alert and awake and oriented X3. No focal neurologic deficits. Moving all the extremi ties. PSYCHIATRIC: Mood and affect normal. LABORATORY DATA: Not done today. ASSESSMENT AND PLAN: 1. Acute kidney injury on chronic kidney disease, recheck labs in the morning. Continue on Lasix. 2. Cardiorenal syndrome. Continue on Lasix. Follow with Cardiology. 3. Hypernatremia, advised to limit fluid intake. 4. Hypertension, seems to be stable. 5. Anemia. Plan is to continue Lasix and recheck labs in the morning. Follow up with Cardiology for optimizati on of cardiac medications. We will follow.
[2017-05-26] MEDS ORDERED: Acetaminophen 325 MG TAB PO PRN (17:26)
[2017-05-26] MEDS ORDERED: Dextrose 50% Abboject 50 ML SYRINGE SLOW IVP PRN (17:27)
[2017-05-26] MEDS ORDERED: Dextrose 5% in Water 1,000 ML IV PRN (17:27)
[2017-05-26] MEDS: HYDROcodone/Acetaminophen 5/325 mg Tablet PO PRN (20:30)
[2017-05-26] MEDS: Atorvastatin Calcium 40 MG TAB PO SCH (20:30)
[2017-05-27] MEDS: HYDROcodone/Acetaminophen 5/325 mg Tablet PO PRN (01:21)
[2017-05-27] MEDS ORDERED: Furosemide 40 MG TAB PO SCH (09:00)
[2017-05-27] MEDS: HumaLOG 300 UNITS/3 ML VIAL SC PRN ×4 (09:32→21:25)
[2017-05-27] MEDS: Heparin 5,000 UNITS/ML VIAL SC SCH ×3 (09:33→21:23)
[2017-05-27] MEDS: Labetalol 100 MG TAB PO SCH ×2 (09:34→21:21)
[2017-05-27] MEDS: Furosemide 40 MG TAB PO SCH (09:35)
[2017-05-27] MEDS: Aspirin 325 MG TAB PO SCH (09:35)
[2017-05-27] MEDS: Clopidogrel Bisulfate 75 MG TAB PO SCH (09:35)
[2017-05-27] MEDS: hydrALAZINE 25 MG TAB PO SCH ×3 (09:35→21:21)
[2017-05-27] MEDS: NIFEdipine XL 90 MG TAB PO SCH (09:36)
[2017-05-27 09:37] LABS: Anion Gap 19 mmol/L (10-20); BUN (Urea Nitrogen) 65 mg/dL (9.8-20.1); Calc. Creatinine Clearance 14 mL/min (70-130); Calcium 9.6 mg/dL (7.8-10.44); Carbon Dioxide 19 mmol/L (23-31); Chloride 97 mmol/L (98-107); Estimated GFR-MDRD 11; Magnesium 2.2 mg/dL (1.6-2.6)
[2017-05-27] MEDS ORDERED: Megestrol Acetate 800 MG/20 ML UDCUP PO SCH ×2 (14:15→14:20)
--- NOTE | 2017-05-27 15:10 | PRG ---
DATE OF SERVICE: 05/27/2017 SUBJECTIVE: The patient was seen and examined at the bedside. She is weak, short of breath, feels tired. Appetite is poor. She does not get any physical therapy. OBJECTIVE: VITAL SIGNS: Blood pressure is 179/75, temperature is 97.8, pulse is 64, respiratory rate is 20, an d pulse oximetry is 95% on 3 liters by nasal cannula. GENERAL: She looks tired and exhausted as she is short of breath. HEENT: Her head is atraumatic, normocephalic. Her pupils are responding to light properly. Sclera e is nonicteric. Conjunctivae are pinkish. Oral mucosa is slightly dry. NECK: Supple. JVD plus bilaterally, 1-2. LUNGS: Breath sounds diminished at both bases with some crackles at both bases. HEART: S1, S2, somewhat irregular. No S3, no S4. ABDOMEN: Soft, nontender, bowel sounds are present, no organomegaly. EXTREMITIES: No clubbing, cyanosis, or edema. NEUROLOGIC EXAMINATION: She is able to answer all my questions properly. She is able to move all 4 extremities. There are not any sensory or motor deficits. LABORATORY DATA: Labs showed sodium of 130, potassium 4.8, chloride 97, CO2 of 19, BUN 65, creatini ne 3.98. Glycemia is ranging from 172-234. IMPRESSION: 1. Chest pain, resolved. 2. Acute on chronic renal insufficiency, improved. 3. Hypertension, still an issue. We will try to work with medications on that issue. 4. Diabetes mellitus, type 2. We will start her on long-acting insulin, Levemir or Lantus 20 units at bedtime. She is not eating much. So, this is going to be just half the dose what she is taking at home. 5. Poor appetite. We will get a physical therapist to work with her and we will get Megace 800 mg once a day p.o. 6. End-stage renal disease, chronic, stage 5, is somewhat improved from the time of admission. 7. Anemia of chronic disease, on Epogen and status post transfusion. 8. Severe coronary artery disease. 9. Dyslipidemia. 10. History of cerebrovascular accident. PLAN: We are going to start PT on her. We are going to start Glucerna liquid form since she is not eating solid food much. We will have 1 can 3 times a day. Also, since her appetite is poor, we wi ll start her on Megace, and maybe this is going to help her to get stronger. Apparently, she ran ou t of her Medicare days and it is difficult to find a place for her to stay and the family is not abl e to care for her at home. So, we will try our best to continue to care for this lady.
--- NOTE | 2017-05-27 15:50 | PRG ---
DATE OF SERVICE: 05/27/2017 SUBJECTIVE: Ms. Bonilla is feeling more short of breath actually today than she was yesterday. She is not having chest pain or pressure. PHYSICAL EXAMINATION: VITAL SIGNS: Her blood pressure is high 179/75, pulse 64 regular. LUNGS: Clear anteriorly and posteriorly. She has bilateral rales. CARDIAC: Normal S1 and S2. ABDOMEN: Soft, nontender. EXTREMITIES: Only mild edema. ASSESSMENT: 1. Congestive heart failure, diastolic, worse. 2. End-stage renal disease, estimated GFR is 11. Patient has declined dialysis. 3. Anemia, status post 1 unit of packed red blood cells. PLAN: 1. She will receive Lasix one dose 40 mg IV. 2. Recheck CBC tomorrow morning. Prognosis is poor. She has declined dialysis.
[2017-05-27] MEDS ORDERED: Furosemide 40 MG/4 ML VIAL SLOW IVP SCH (16:00)
[2017-05-27] MEDS ORDERED: Insulin Detemir 100 UNITS/ML 20 UNITS in Pre-Filled Syringe 1 EACH SC SCH (21:00)
[2017-05-27] MEDS: Atorvastatin Calcium 40 MG TAB PO SCH (21:22)
--- NOTE | 2017-05-27 21:37 | PRG ---
DATE OF SERVICE: 05/27/2017 SUBJECTIVE: Patient was seen and examined at bedside and overnight events noted. Patient denies an y shortness of breath or chest pain or palpitation. No history of nausea or vomiting or diarrhea or fever or chills or cramps. OBJECTIVE: GENERAL: This is a well-built female in apparent distress. VITAL SIGNS: Temperature , pulse 70, respiratory rate , and blood pressure . HEENT: Atraumatic and normocephalic. Oral mucosa is moist. NECK: Supple. CARDIOVASCULAR: S1 and S2 heard. Rate and rhythm regular. RESPIRATORY: Clear to auscultation. GASTROINTESTINAL: Abdomen is soft. MUSCULOSKELETAL: No tenderness. No edema. DERMATOLOGIC: No skin rash. NEUROLOGIC: Alert, awake and oriented x3. No focal neurologic deficits. Moving all the extremitie s. PSYCHIATRIC: Mood and affect normal. LABORATORY DATA: Potassium is 4.8, BUN is 65 and creatinine is 3.9. ASSESSMENT AND PLAN: 1. Acute kidney injury on chronic kidney disease. Renal function is getting worse, might have to d rop down the dose of furosemide or follow with Cardiology. 2. Cardiorenal syndrome. Follow with Cardiology. 3. Hyponatremia. 4. Hypertension, stable. 5. Anemia, chronic. 6. Renal function is getting worse. Avoid nephrotoxins. Currently, on Lasix. We will follow with Cardiology.
[2017-05-28 05:27] LABS: #Basophils 0.1 thou/uL (0.0-0.2); #Eosinphils 0.2 thou/uL (0.0-0.7); #Monocytes 0.7 thou/uL (0.11-0.59); #Neutrophils 10.6 thou/uL (1.40-6.50); %Basophils 0.5 % (0.0-1.0); %Eosinophils 1.7 % (0.0-10.0); %Lymphocytes 14.5 % (21.0-51.0); %Monocytes 5.2 % (0.0-10.0); Hematocrit 27.4 % (36.0-47.0); Mean Platelet Volume 7.3 fL (7.4-10.4); Red Blood Cell (RBC) Count 2.95 mill/uL (4.20-5.40); White Blood Cell (WBC) Count 13.5 thou/uL (4.8-10.8)
[2017-05-28] MEDS: HYDROcodone/Acetaminophen 5/325 mg Tablet PO PRN (05:37)
[2017-05-28] MEDS: MORPHINE 10 MG/ML SYRINGE IV PRN ×2 (05:48→10:55)
[2017-05-28 08:04] VITALS: BMI 29.0
[2017-05-28] MEDS ORDERED: Megestrol Acetate 800 MG/20 ML UDCUP PO SCH (09:00)
[2017-05-28] MEDS: Heparin 5,000 UNITS/ML VIAL SC SCH ×3 (09:06→21:50)
[2017-05-28] MEDS: Clopidogrel Bisulfate 75 MG TAB PO SCH (09:06)
[2017-05-28] MEDS: Furosemide 40 MG TAB PO SCH (09:06)
[2017-05-28] MEDS: Labetalol 100 MG TAB PO SCH ×2 (09:07→21:47)
[2017-05-28] MEDS: hydrALAZINE 25 MG TAB PO SCH ×3 (09:07→21:48)
[2017-05-28] MEDS: Megestrol Acetate 800 MG/20 ML UDCUP PO SCH (09:08)
[2017-05-28] MEDS: NIFEdipine XL 90 MG TAB PO SCH (09:08)
[2017-05-28] MEDS ORDERED: Furosemide 100 MG/10 ML VIAL SLOW IVP SCH (09:15)
--- NOTE | 2017-05-28 09:26 | PRG ---
DATE OF SERVICE: 05/28/2017 Ms. Bonilla is having chest pain. She is also on oxygen 3 liters per minute. Oxygen saturation is 9 0-91% , it was 89%. LUNGS: Lungs clear. CARDIAC: Normal S1, normal S2. ABDOMEN: Soft, nontender. EXTREMITIES: No edema. Most recent GFR is 11. ASSESSMENT: 1. End-stage renal disease, but declines dialysis. Discussed that again with her, she does not wan t it. 2. Anemia has improved, hemoglobin went from 7.1 to 9.2. 3. Angina mostly related to hypertension and heart failure I suspect. The heart failure is diastol ic and also related to renal failure. PLAN: 1. Give her a dose of Lasix 80 mg IV x1. 2. Continue Procardia-XL 60. 3. Again, the patient declined dialysis. Prognosis is poor. The goal of therapy appears trying to reduce and minimize pain and suffering.
[2017-05-28 09:42] LABS: Carbon Dioxide 18 mmol/L (23-31); Chloride 95 mmol/L (98-107)
[2017-05-28 09:43] LABS: Anion Gap 21 mmol/L (10-20); BUN (Urea Nitrogen) 63 mg/dL (9.8-20.1); Calc. Creatinine Clearance 14 mL/min (70-130); Calcium 9.8 mg/dL (7.8-10.44); Estimated GFR-MDRD 11
[2017-05-28] MEDS: Aspirin 325 MG TAB PO SCH (10:30)
[2017-05-28] MEDS ORDERED: Nitroglycerin 4.9 GM Bottle SL PRN (10:34)
[2017-05-28] MEDS ORDERED: Nitroglycerin 0.4 MG TAB 1 EACH PO PRN (10:37)
[2017-05-28] MEDS ORDERED: Morphine PF 1 MG/ML SYR IV PRN (10:39)
[2017-05-28] MEDS ORDERED: Nitroglycerin 50 MG/250 ML BOT 0 ML ONE (10:42)
[2017-05-28] MEDS ORDERED: Nitroglycerin 0.4 MG TAB (25 Tab Bottle) ONE (10:42)
[2017-05-28] MEDS ORDERED: Morphine PF 1 MG/ML SYR IVP SCH (10:45)
[2017-05-28 11:46] LABS: Troponin I 0.034 ng/mL (< 0.028)
[2017-05-28] MEDS ORDERED: Insulin Detemir 100 UNITS/ML 40 UNITS in Pre-Filled Syringe 1 EACH SC SCH (12:28)
[2017-05-28] MEDS: HumaLOG 300 UNITS/3 ML VIAL SC PRN ×2 (12:33→18:03)
--- NOTE | 2017-05-28 15:49 | PRG ---
DATE OF SERVICE: 05/28/2017 SUBJECTIVE: The patient is seen and examined at the bedside. She complains about chest pain. She had one chest pain this morning. She was medicated with morphine 2 mg and now she had additional ch est pain and she is given nitroglycerin and morphine, if she needs to, will get this pain relief. OBJECTIVE: VITAL SIGNS: Blood pressure is 170/74, pulse is 81, respiratory rate is 19, O2 saturation is 99% on 3 liters. HEENT: Atraumatic, normocephalic. She looks tired and exhausted and quite sick. Her sclerae nonic teric. Conjunctivae pinkish. Oral mucosa is moist. NECK: Supple. LUNGS: Breath sounds diminished at both bases. No crackles, no rales. CARDIOVASCULAR: S1, S2, somewhat irregular. No S3. ABDOMEN: Soft and nontender. EXTREMITIES: 1-2+ peripheral edema similar bilaterally. NEUROLOGIC: Unchanged. She is alert and oriented x3. There is no any motor deficit. Cranial nerv es are intact. LABORATORY DATA: Showed white count of 13.5, hemoglobin of 9.2, hematocrit 27.4, platelet count is 481,000. Chemistry shows sodium of 130, potassium 4.3, chloride 95, CO2 18, BUN 63, creatinine 3.96 . Glycemia is ranging from 150-274, CK-MB done during her chest pain came back at 2.1 and troponin I at 0.034. IMPRESSION: 1. Chest pain, recurrent, which is angina, most likely caused by her severe coronary artery disease . 2. Acute on chronic renal insufficiency which is somewhat better, but the patient refused to have d ialysis. 3. Hypertension, still having a lot of issues with that, this is not well controlled. She is treat ed with multiple medications and her blood pressure is still elevated, but this is most likely relat ed to some renal artery stenosis. 4. Diabetes mellitus type 2. We are going to increase her dose of Levemir from 20-30 units since s he is still hyperglycemic. 5. Poor appetite. She was started on Megace and we are also keeping her Glucerna. 6. End-stage renal disease, chronic stage 5. Again, patient refused dialysis. 7. Anemia of chronic disease, Epogen and status post transfusion. 8. Severe coronary artery disease as mentioned above. 9. Dyslipidemia. 10. History of cerebrovascular accident. PLAN: To send her to [facility]. Apparently, her son paid for her to stay there. We are going to try to arrange to transfer as soon as possible. At this point, I would continue her PT and current other medications and again we tried to get her blood pressure under better control. She is a DNR/ DNI.
[2017-05-28] MEDS: NIFEdipine XL 60 MG TAB PO SCH (21:49)
[2017-05-28] MEDS: Atorvastatin Calcium 40 MG TAB PO SCH (21:50)
--- NOTE | 2017-05-28 23:23 | PRG ---
DATE OF SERVICE: 05/28/2017 SUBJECTIVE: Patient was seen and examined at bedside and overnight events noted. Patient denies an y shortness of breath or chest pain or palpitation. No history of nausea or vomiting or diarrhea or fever or chills or cramps. OBJECTIVE: GENERAL: This is a well-built female in no apparent distress. VITAL SIGNS: Temperature 98.1, pulse 75, respiratory rate 20, blood pressure 173/73. HEENT: Atraumatic, normocephalic, oral mucosa is moist. NECK: Supple. CARDIOVASCULAR: S1, S2 heard, rate and rhythm regular. RESPIRATORY: Chest crackles present bilaterally. GASTROINTESTINAL: Abdomen is soft. MUSCULOSKELETAL: No tenderness, no edema. DERMATOLOGIC: No skin rash. NEUROLOGIC: Alert and awake and oriented x3, no focal neurologic deficits. Moving all the extremit ies. PSYCHIATRIC: Mood and affect normal. LABORATORY DATA: Potassium is 4.3, BUN is 63, creatinine is 3.9. ASSESSMENT AND PLAN: 1. Acute kidney injury on chronic kidney disease stage 5. The patient refused to have dialysis maddy pite counseling from multiple specialists and primary care team. The patient adamantly refused dial ysis and overall prognosis is poor. Continue supportive care and medical management. The patient u nderstands the risks with medical management and suboptimal . 2. Cardiorenal syndrome. 3. Hyponatremia. 4. Hypertension. 5. Anemia. Prognosis is extremely guarded. The patient not responding to medical therapy and having worsening cardiorenal syndrome and refuses dialysis. We will follow during this hospitalization. Recommend p alliative care.
[2017-05-29] MEDS ORDERED: Furosemide 40 MG TAB PO SCH (09:00)
--- NOTE | 2017-05-29 09:05 | PRG ---
DATE OF SERVICE: 05/29/2017 When asked how she is doing this morning, she says \\\\"I'm here\\\\". She was not in any distress. PHYSICAL EXAMINATION: VITAL SIGNS: Blood pressure 156/70, pulse 80. LUNGS: Clear. CARDIAC: Normal S1 and S2. ABDOMEN: Soft, nontender. EXTREMITIES: No edema. ASSESSMENT: 1. Severe coronary disease. 2. End-stage renal disease, declines dialysis. 3. Hepatic congestion probably due to heart failure. PLAN: 1. She is on furosemide 80 mg a day, will be increased to that dose. 2. Aspirin and Plavix. 3. She is on statin therapy. 4. She is on Nifedipine long-acting 60 mg twice a day. Prognosis is poor. Hopefully, the patient will be able to stay out of the hospital for at least a b rief period. Goal of therapy is trying to prevent pain and suffering. The patient understands that she has declined dialysis and has a very poor prognosis.
[2017-05-29 09:17] VITALS: TEMP 98.1
[2017-05-29] MEDS: Labetalol 100 MG TAB PO SCH (09:18)
[2017-05-29] MEDS: hydrALAZINE 25 MG TAB PO SCH (09:19)
[2017-05-29] MEDS: Clopidogrel Bisulfate 75 MG TAB PO SCH (09:20)
[2017-05-29] MEDS: Megestrol Acetate 800 MG/20 ML UDCUP PO SCH (09:20)
[2017-05-29] MEDS: Heparin 5,000 UNITS/ML VIAL SC SCH (09:20)
[2017-05-29] MEDS: NIFEdipine XL 60 MG TAB PO SCH (09:20)
[2017-05-29] MEDS: Aspirin 325 MG TAB PO SCH (10:37)
[2017-05-29 12:05] VITALS: BP 136/58
--- NOTE | 2017-05-29 12:16 | DIS ---
CONSULTATIONS: Dr. Abiel Sandoval, Cardiology Service, Dr. Albania Engel, Cardiology Service, Dr. Elinor Arriola, Nephrology Service. IMAGES: Chest x-ray at the time of admission showed worsening pulmonary vascular congestion with in creasing patchy infiltrates bilaterally. FINAL DIAGNOSES: 1. Recurrent chest pain in the setting of severe coronary artery disease which is angina on and off , not feasible for any specific intervention, just treated medically. 2. Acute on chronic renal insufficiency which is somewhat better. The patient refused to have dial ysis. 3. Hypertension. 4. Diabetes mellitus type 2. 5. Anorexia. 6. End-stage renal disease, chronic stage 5 7. Anemia of chronic disease status post Epogen use and post-transfusion. 8. Severe coronary artery disease as mentioned above. 9. Dyslipidemia. 10. History of cerebrovascular accident. HOSPITAL COURSE: The patient is an 82-year-old female with past medical history of CKD st age 4-5, hypertension, diabetes mellitus type 2, coronary artery disease, hyperlipidemia who came to the emergency room at [facility] with complaints of chest pain. The pain woke her up in the mi ddle of night. It was substernal. She denied any radiation. There was some dyspnea, no sweating, no nausea, no vomiting, dizziness, pain was rated 5 on a scale from 1-10. There was no fever, no ch ills, no cough. The patient was evaluated in the Emergency Room. Her blood pressure was elevated a t 161/70 at the time of admission, pulse oximetry was 92% on 2 liters. She was found to have EKG ch anges with prominent T waves in V2 and V3. Cardiology consultation was requested and she was monito red closely. She was continued on aspirin, statin, and Nephrology was consulted since her creatinin e was significantly elevated with chronic kidney disease with some acute component. The patient was seen by Dr. Arriola who managed her kidney function treatments. The patient is established with Dr Gini Wyatt, her insulation supervisor at [facility] and she has severe coronary artery di sease, and this was treated medically, there was not any recommendation to do anything interventiona lly. The patient refused dialysis in the past and is treated medically. Her diuretics were held on her last admission due to worsening renal function. Per Cardiology, her amlodipine was changed to nifedipine, since her blood pressure was elevated and required additional agents. Since nifedipine is stronger anti-hypertensive than amlodipine, she was started on it. She was continued on small do se of diuresis on and off as needed. Also, her hemoglobin was 7.1 so she was transfused. The patie nt received 1 unit of packed red blood cells. She was continued on her do not resuscitate status. Cardiology recommended very conservative approach. Her general condition was affected by profound w eakness. She is not really able to participate in any kind of physical therapy. She requires O2 al l the time and her appetite was stimulated with Megace during this hospitalization and she was given liquid form of food. Her son apparently arranged some jail facility and she is discharg ed there on DNR status. DISCHARGE MEDICATIONS: At the time of discharge; atorvastatin 40 mg once a day, clopidogrel 75 mg o nce a day, Pantoprazole 40 mg once a day, clonidine 0.2 mg patch TTS 2 change every 7 days, hydralaz ine 100 mg 3 times a day, Tylenol p.r.n. 650 every 4 hours as needed, aspirin 325 mg once a day, fur osemide 80 mg once a day, nifedipine 60 mg twice a day, prednisone 5 mg once a day, nitroglycerin dill blingual spray p.r.n. as needed for chest pain. Megace 800 mg daily, labetalol 100 mg daily. She w ill continue on her isosorbide dinitrate 40 mg 3 times a day, Levemir 40 units subcutaneously q.24. She will be transferred today. The discharge is more than 30 minutes.
--- NOTE | 2017-05-30 00:52 | PRG ---
DATE OF SERVICE: 05/29/2017 SUBJECTIVE: Patient was seen and examined at bedside and overnight events noted. Patient denies an y shortness of breath or chest pain or palpitation. No history of nausea or vomiting or diarrhea or fever or chills or cramps. OBJECTIVE: GENERAL: This is an elderly female, in no apparent distress. VITAL SIGNS: Temperature 98.1, pulse 74, respiratory rate 20, blood pressure 143/66. HEENT: Atraumatic, normocephalic. Oral mucosa is moist. NECK: Supple. CARDIOVASCULAR: S1, S2 heard. Rate and rhythm regular. RESPIRATORY: Clear to auscultation. GASTROINTESTINAL: Abdomen is soft. MUSCULOSKELETAL: No tenderness. No edema. DERMATOLOGIC: No skin rash. NEUROLOGIC: Alert and awake and oriented x3. No focal neurologic deficits. Moving all the extremi ties. PSYCHIATRIC: Mood and affect normal. LABORATORY DATA: Not done. ASSESSMENT AND PLAN: 1. Acute kidney injury on chronic kidney disease stage 5 with poor prognosis. Patient refused dial ysis . 2. Hyponatremia. 3. Hypertension. 4. Anemia. Overall, prognosis is poor. Patient refused dialysis and recommend comfort measures and palliative care.
[2017-05-31] MEDS ORDERED: cloNIDine 0.2mg/24 Hour PATCH TD SCH (09:00)
[2017-05-31] MEDS ORDERED: Epoetin (ESRD) 20,000 UNITS/ML SC SCH (17:30)
--- NOTE | 2017-06-27 16:10 | EKG ---
Test Reason : CHEST PAIN Blood Pressure : / mmHG Vent. Rate : 089 BPM Atrial Rate : 089 BPM P-R Int : 136 ms QRS Dur : 094 ms QT Int : 364 ms P-R-T Axes : 039 007 092 degrees QTc Int : 442 ms Normal sinus rhythm with sinus arrhythmia Nonspecific ST and T wave abnormality Abnormal ECG Confirmed by KOBI STAHL, SATISH Huntley ([id number]), news editor KATIE GARZON ([id number]) on 06/27/2017 4:10:33 PM Referred By: ERICKA PEACE Confirmed By:SATISH PEACE MD
== END 2017-05-29 13:48 | DRG 302 ==
LOC: ERS 01:31 → 2NO 01:50 → UNDODISIN 05-26 15:15
PROVIDERS: ADMIT Internal Medicine; ATTEND Internal Medicine
PROC: 30233N1 Transfusion of Nonautologous Red Blood Cells into Peripheral Vein, Percutaneous Approach (ICD-10-PCS; principal; 2017-05-26)
DX: I25.118 Atherosclerotic heart disease of native coronary artery with other forms of angina pectoris (principal); N18.6 End stage renal disease; N17.9 Acute kidney failure, unspecified; I50.31 Acute diastolic (congestive) heart failure; I13.2 Hypertensive heart and chronic kidney disease with heart failure and with stage 5 chronic kidney disease, or end stage renal disease; E87.2 Acidosis; E87.1 Hypo-osmolality and hyponatremia; E11.22 Type 2 diabetes mellitus with diabetic chronic kidney disease; D63.1 Anemia in chronic kidney disease; Z95.5 Presence of coronary angioplasty implant and graft; E78.5 Hyperlipidemia, unspecified; Z66 Do not resuscitate; Z86.73 Personal history of transient ischemic attack (TIA), and cerebral infarction without residual deficits; R63.0 Anorexia; Z79.4 Long term (current) use of insulin; E88.09 Other disorders of plasma-protein metabolism, not elsewhere classified; I16.0 Hypertensive urgency; Z68.28 Body mass index [BMI] 28.0-28.9, adult
CPT/HCPCS: 36415; 36416; 36430; 71010; 80048; 80053; 82553; 82728; 83540; 83550; 83690; 83735; 83880; 84484; 85025; 86850; 86900; 86901; 93005; 96374; A4216; G8978-GP-CN; G8979-GP-CM; J1644; J1815; J1940; J2270; J2274; P9016; Q4081